=== PATIENT | female | born 1955 | race Caucasian/White ===

== ENCOUNTER → 2016-08-03 | Outpatient (REF) | payer MEDICARE ==
[~2016-08-03] MED LIST: ANTI25TA PO; LANS30CA PO; LORT5TAB PO; MECL-68 PO; MILKSUS PO; POTA20PO4 PO; PREV30CA11 PO; PREVACID PO; PROM25TA PO; TYLE325T5 PO
[2016-08-03 13:11] LABS: INR 1.04
[2016-08-03 13:30] LABS: MEAN CORPUSCULAR HEMOGLOBIN 32.1 pg (27.0-33.0); MEAN CORPUSCULAR HGB CONC 34.4 g/dl (32.0-36.5); MEAN CORPUSCULAR VOLUME 93.5 fl (80.0-96.0); RED CELL DISTRIBUTION WIDTH 12.5 % (11.5-14.5); WHITE BLOOD COUNT 7.1 K/mm3 (4.0-10.0)
[2016-08-03 14:29] LABS: EOSINOPHILS 2 % (0-5)
== END ==
LOC: M LAB REF 12:48
PROVIDERS: ATTEND Nurse Practitioner Adult Health
DX: B18.2 Chronic viral hepatitis C (principal); K74.69 Other cirrhosis of liver

== ENCOUNTER → 2016-12-06 | Outpatient (REF) | payer MEDICARE ==
[2016-12-06 15:24] LABS: INR 1.07
[2016-12-07 07:57] LABS: CONTROL LINE HPYORI INT CTR LINE PRESENT
[2016-12-08 00:06] LABS: HEPATITIS C QUANTITATION HCV Not Detected IU/mL (.)
== END ==
LOC: M LAB REF 12:36
PROVIDERS: ATTEND Nurse Practitioner Adult Health
DX: B18.2 Chronic viral hepatitis C (principal); K74.69 Other cirrhosis of liver

== ENCOUNTER → 2017-03-09 | Outpatient (CLI) | payer MEDICARE ==
[~2017-03-09] MED LIST changes: +ADVI200C PO; +HALO5OI; +PREV1CAP PO; -PREV30CA11 PO
--- NOTE | 2017-03-09 19:43 | ECGEPIP ---
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
== END ==
LOC: M LAB 07:58
PROVIDERS: ATTEND Anesthesiology
DX: R07.9 Chest pain, unspecified (principal)

== ENCOUNTER 2017-03-14 09:46 | Day surgery (SDC) | payer MEDICARE ==
[~2017-03-14] VITALS: Ht 175.3 cm; Wt 93.9 kg
[~2017-03-14 09:46] MED LIST changes: -HALO5OI
[2017-03-14] MEDS ORDERED: LR 1,000 ML IV ONE (10:00)
[2017-03-14] MEDS ORDERED: HALO5OI (10:16)
[2017-03-14] MEDS ORDERED: LIDOCAINE 2% INJ 100 MG/5 ML SDV (FOR ANES.) As Ordered ONE (10:39)
[2017-03-14] MEDS ORDERED: fentaNYL 100 MCG/2 ML INJECTION (J3010) As Ordered ONE ×2 (10:39→11:43)
[2017-03-14] MEDS ORDERED: ROCURONIUM BROMIDE 50 MG/5 ML VIAL/SYRINGE As Ordered ONE (10:39)
[2017-03-14] MEDS ORDERED: ONDANSETRON 4MG/2ML VIAL (J2405) As Ordered ONE (10:39)
[2017-03-14] MEDS ORDERED: PROPOFOL 200 MG/20 ML VIAL As Ordered ONE (10:39)
[2017-03-14] MEDS ORDERED: METOCLOPRAMIDE INJ 10MG/2ML VIAL (J2765) As Ordered ONE (10:39)
[2017-03-14] MEDS ORDERED: dexameTHASONE 4 MG/ML 1ML VIAL (J1100) As Ordered ONE (10:39)
[2017-03-14] MEDS ORDERED: MIDAZOLAM INJ 2 MG/2 ML VIAL (J2250) As Ordered ONE (10:40)
[2017-03-14] MEDS ORDERED: KETOROLAC 60 MG/2 ML VIAL (J1885) As Ordered ONE (12:01)
[2017-03-14] MEDS ORDERED: NEOSTIGMINE 10 MG/10 ML VIAL (J2710) As Ordered ONE (12:01)
[2017-03-14] MEDS ORDERED: GLYCOPYRROLATE INJ 0.2 MG/ML 2 ML VIAL As Ordered ONE (12:01)
[2017-03-14] MEDS ORDERED: fentaNYL 100 MCG/2 ML INJECTION (J3010) IV PRN (12:45)
[2017-03-14] MEDS ORDERED: ONDANSETRON 4MG/2ML VIAL (J2405) IV PRN (12:45)
[2017-03-14] MEDS ORDERED: HYDROmorphone HCL 1 MG/ML SYRINGE (J1170) IV PRN (12:45)
[2017-03-14] MEDS ORDERED: PERCOCET 5MG/325MG TAB PO PRN (12:45)
[2017-03-14] MEDS ORDERED: NORCO, ANEXSIA 5/325MG TABLET (HYDROcodone/ACETAMINOPHEN) PO PRN (12:45)
[2017-03-14] MEDS ORDERED: IBUPROFEN 600 MG TAB PO PRN (12:45)
[2017-03-14] MEDS ORDERED: LR 1,000 ML IV SCH ×2 (12:45)
[2017-03-14 15:20] VITALS: BP 160/77
--- NOTE | 2017-03-15 07:47 | RO ---
DATE OF PROCEDURE: 03/14/2017 PREPROCEDURE DIAGNOSIS: Growing right ovarian cyst. POSTPROCEDURE DIAGNOSIS: Extensive adhesions over each ovary. Cystic lesion. PROCEDURE: Laparoscopic bilateral salpingo-oophorectomy (BSO) with lysis of adhesions. SURGEON: Dr. Qiana Vazquez. SENIOR TREASURY CONSULTANT: None. ANESTHESIA: General endotracheal anesthesia. DESCRIPTION OF PROCEDURE: Adwoa was brought to the operating room where sufficient general endotracheal anesthesia was induced and she was prepped, draped, and positioned in the usual sterile fashion. She is post hysterectomy and so a sponge on a stick was placed in the vagina, but no other manipulator. Attention was turned to the abdomen where a transverse semilunar incision was made below the umbilicus. Sharp and blunt dissection were continued to the subcutaneous tissues to the level of the rectus fascia, which was elevated with Kayla clamps, transversely incised and the peritoneum entered under direct visualization. The Zuniga cannula was then placed in an open laparoscopic technique and secured in place with a 0 Vicryl retention suture and CO2 insufflation then begun. After adequate CO2 insufflation, the peritoneal cavity was visualized. The upper abdomen is normal in appearance. The mid abdomen is normal in appearance. In the lower abdomen, with Trendelenburg, we could see extensive adhesions. The ovaries were fused in the midline in this post hysterectomy patient, and she had extensive adhesions of the epiploicae of the bowel to the posterior aspect of the ovaries and adhesions of the bladder and the anterior abdominal peritoneum to the ovaries and a cystic lesion in the midline. The plan had been for removal of the right ovary and cyst because it was believed to be arising from the right ovary. On the basis of the exam at the time of operation, it is more closely aligned with the left ovary. But as you can see from the operative reports, it is really attached to both. It was clear in this 61-year-old patient that both ovaries were connected to this lesion and were connected to her bladder and her epiploicae of her bowel. The decision was made, based on the patient's preferences expressed preoperatively to go ahead and take both ovaries out, especially given the findings under anesthesia that this lesion is actually arising from both the right and left, and somewhat more so left, actually. We used cold scissors to cut free some of the thinner adhesions and to cut free the bladder and the peritoneum over this. We backfilled the bladder and placed a Taylor so we could backfill the bladder and make sure that we were clearly outlining its location. With it backfilled we were able to see where the adhesions and peritoneum were as opposed to bladder. We also were able to place a right lower quadrant port so that we could have the ability to manipulate the tissues. We then used an Enseal cauterizing dissector to carefully cauterize after resecting the infundibulopelvic ligaments on both sides. Having freed the infundibulopelvic ligaments and maintained good hemostasis, we then carefully began to move through the mesentery removing the remaining stumps of the fallopian tubes as well as the ovaries and the cystic lesion. Where possible, we did use cold scissors to protect the bladder, but we did have to cauterize in some of these locations so we backfilled to make sure we were far enough away before we went ahead and did that. We were also careful to use a grasper to elevate the ovaries and cystic lesion away from the bowel so we could carefully free it. We then eventually had both ovaries fused to this midline cystic lesion and the fallopian tubes distal portions also fimbriated bilaterally all fused in mass. We had that then free from the patient. We switched over to a 5 mm scope rather than the operative scope at the umbilicus and put that 5 mm scope in the right lower quadrant so that we could put an Endobag through the operative scope. Then we scooped up the ovaries and lesion and fallopian tubes with this. We the removed the trocar and everything at the umbilicus so that we could bring that bag up through. Doing this and then carefully manipulating the bag so that the mass came longitudinally and we were able to remove the mass intact in the bag intact and send this off to the pathologist for evaluation. We were able to visualize and examined the site of dissection and confirmed that there was no evidence of injury to the bladder or bowel and there was good hemostasis. The procedure was ended. The CO2 was allowed to escape the abdomen. The fascial wound at the umbilicus was closed with 0 Vicryl suture. There was a little oozing in the subcu at the umbilicus and so we did a mid layer closure of the subcu to control that oozing. When we had good hemostasis there, we then closed the skin with a subcuticular stitch of #3-0 Vicryl. We also closed the skin at the 5 mm port with a subcuticular stitch of #3-0 Vicryl. Estimated blood loss for the procedure was about 22 mL. Fluid replacement was crystalloid. Complications: None. CONDITION AND DISPOSITION: Adwoa tolerated the procedure well and was recovering in the recovery room in good condition.
== END 2017-03-14 15:30 | disposition home or self-care (01) ==
LOC: M SDC 09:46
PROVIDERS: ATTEND Obstetrics & Gynecology
DX: D27.0 Benign neoplasm of right ovary (principal); D27.1 Benign neoplasm of left ovary; K66.0 Peritoneal adhesions (postprocedural) (postinfection); K21.9 Gastro-esophageal reflux disease without esophagitis; M54.5 Low back pain; R07.9 Chest pain, unspecified; K74.60 Unspecified cirrhosis of liver; B19.20 Unspecified viral hepatitis C without hepatic coma; K44.9 Diaphragmatic hernia without obstruction or gangrene; R29.898 Other symptoms and signs involving the musculoskeletal system; M17.0 Bilateral primary osteoarthritis of knee; R21 Rash and other nonspecific skin eruption; R51 Headache; Z88.8 Allergy status to other drugs, medicaments and biological substances; Z91.018 Allergy to other foods; Z87.81 Personal history of (healed) traumatic fracture; Z90.710 Acquired absence of both cervix and uterus; Z78.0 Asymptomatic menopausal state
CPT/HCPCS: 58660; 58661; 88307; J1100; J1885; J2250; J2405; J2710; J2765; J3010

== ENCOUNTER → 2017-03-31 | Outpatient (REF) | payer MEDICARE ==
[~2017-03-31] MED LIST changes: +HALO5OI
== END ==
LOC: M LAB REF 16:15
PROVIDERS: ATTEND Obstetrics & Gynecology
DX: R39.89 Other symptoms and signs involving the genitourinary system (principal)

== ENCOUNTER → 2017-07-11 | Outpatient (REF) | payer MEDICARE ==
[2017-07-12 09:27] LABS: CONTROL LINE HPYORI INT CTR LINE PRESENT; H PYLORI QUALITATIVE IgG NEGATIVE (NEGATIVE)
== END ==
LOC: M LAB REF 17:17
DX: K21.9 Gastro-esophageal reflux disease without esophagitis (principal)
CPT/HCPCS: 86677

== ENCOUNTER 2017-08-22 10:49 | Emergency (ER) | payer MEDICARE ==
[2017-08-22 11:29] LABS: BASO % 0.7 % (0.0-1.0); EOS # 0.2 10^3/uL (0.0-0.50); EOS % 4.2 % (0.0-3.0); HEMATOCRIT 44.2 % (36.0-47.0); HEMOGLOBIN 15.4 g/dl (12.0-16.0); IMMATURE GRANULOCYTE % 0.2 % (0-3.0); LYMPH % 34.3 % (24.0-44.0); MEAN CORPUSCULAR HEMOGLOBIN 31.8 pg (27.0-33.0); MEAN CORPUSCULAR HGB CONC 34.8 g/dl (32.0-36.5); MEAN CORPUSCULAR VOLUME 91.1 fl (80.0-96.0); MONO # 0.4 10^3/uL (0.0-0.8); MONO % 7.7 % (0.0-5.0); NEUTROPHILS # 3.1 10^3/uL (1.8-7.7); NEUTROPHILS % 52.9 % (36.0-66.0); PLATELET COUNT, AUTOMATED 176 10^3/uL (150-450); RED BLOOD COUNT 4.85 10^6/uL (4.00-5.40); RED CELL DISTRIBUTION WIDTH 12.7 % (11.5-14.5); WHITE BLOOD COUNT 5.8 10^3/uL (4.0-10.0)
[2017-08-22] MEDS: ASPIRIN 81 MG CHEW TABLET PO (11:31)
[2017-08-22 12:09] LABS: NT-PRO BNP 35 PG/ML (<125)
[2017-08-22 12:22] LABS: BLOOD UREA NITROGEN 12 MG/DL (7-18); CREATININE FOR GFR 0.83 MG/DL (0.55-1.30); GLUCOSE, FASTING 112 MG/DL (70-100)
[2017-08-22 12:23] LABS: ANION GAP 8 MEQ/L (8-16); CALCIUM LEVEL 8.8 MG/DL (8.8-10.2); CARBON DIOXIDE LEVEL 27 MEQ/L (21-32); CHLORIDE LEVEL 107 MEQ/L (98-107); CK-MB VALUE MASS 4.1 NG/ML (0.0-3.6); CPK CREATINE PHOSPHOKINASE 244 U/L (26-192); GLOMERULAR FILTRATION RATE > 60.0 (>45); MB/CK RELATIVE INDEX 1.68 (< OR =4); POTASSIUM SERUM 3.5 MEQ/L (3.5-5.1); SODIUM LEVEL 142 MEQ/L (136-145); TROPONIN I < 0.02 NG/ML (< 0.10)
[2017-08-22 15:39] LABS: CK-MB VALUE MASS 3.3 NG/ML (0.0-3.6); CPK CREATINE PHOSPHOKINASE 208 U/L (26-192); MB/CK RELATIVE INDEX 1.58 (< OR =4); TROPONIN I < 0.02 NG/ML (< 0.10)
== END 2017-08-22 15:56 | disposition home or self-care (01) ==
LOC: M ED 10:49
DX: R07.9 Chest pain, unspecified (principal); K74.60 Unspecified cirrhosis of liver; Z86.19 Personal history of other infectious and parasitic diseases; Z88.8 Allergy status to other drugs, medicaments and biological substances; Z91.018 Allergy to other foods; Z79.899 Other long term (current) drug therapy
CPT/HCPCS: 71045

== ENCOUNTER → 2017-09-04 | Outpatient (REF) | payer MEDICARE ==
[2017-09-04 18:47] LABS: APPEARANCE, URINE CLEAR (CLEAR); BACTERIA, URINE AUTO NEGATIVE (NEGATIVE); BILIRUBIN, URINE AUTO NEGATIVE (NEGATIVE); BLOOD, URINE BLOOD NEGATIVE (NEGATIVE); COLOR, URINE YELLOW (YELLOW); GLUCOSE, URINE (UA) AUTO NEGATIVE (NEGATIVE); KETONE, URINE AUTO NEGATIVE (NEGATIVE); LEUKOCYTE ESTERASE, URINE AUTO NEGATIVE (NEGATIVE); MUCUS, URINE SMALL (NEGATIVE); NITRITE, URINE AUTO NEGATIVE (NEGATIVE); PROTEIN, URINE AUTO NEGATIVE (NEGATIVE); RBC, URINE AUTO 2 /HPF (0-3); SPECIFIC GRAVITY URINE AUTO 1.015 (1.002-1.035); SQUAMOUS EPITHELIAL CELL UR AU 0 /HPF (0-6); WBC, URINE AUTO 1 /HPF (0-3)
== END ==
LOC: M LAB REF 16:39
DX: R10.2 Pelvic and perineal pain (principal); N32.81 Overactive bladder
CPT/HCPCS: 81001

== ENCOUNTER 2017-10-03 08:05 | Day surgery (SDC) | payer MEDICARE ==
[2017-10-03] MEDS: NS 1,000 ML IV (08:20)
[2017-10-03] MEDS ORDERED: PROPOFOL 200 MG/20 ML VIAL As Ordered ×2 (09:23→09:35)
[2017-10-03] MEDS ORDERED: LIDOCAINE 2% INJ 100 MG/5 ML SDV (FOR ANES.) As Ordered (09:23)
== END 2017-10-03 10:10 | disposition home or self-care (01) ==
LOC: M OPP 08:05
DX: R13.10 Dysphagia, unspecified (principal); R12 Heartburn; K74.60 Unspecified cirrhosis of liver; K22.8 Other specified diseases of esophagus; K44.9 Diaphragmatic hernia without obstruction or gangrene; K21.9 Gastro-esophageal reflux disease without esophagitis; M19.90 Unspecified osteoarthritis, unspecified site; M54.89 Other dorsalgia; R32 Unspecified urinary incontinence; R42 Dizziness and giddiness; K57.30 Diverticulosis of large intestine without perforation or abscess without bleeding; Z86.19 Personal history of other infectious and parasitic diseases; Z79.899 Other long term (current) drug therapy; Z80.0 Family history of malignant neoplasm of digestive organs; Z83.71 Family history of colonic polyps; Z87.891 Personal history of nicotine dependence
CPT/HCPCS: 43249

== ENCOUNTER → 2018-04-20 | Outpatient (CLI) | payer MEDICARE | LOC: M WHC 07:52 | DX: Z12.31 Encounter for screening mammogram for malignant neoplasm of breast (principal) | CPT/HCPCS: 77067 ==

== ENCOUNTER 2018-07-16 08:39 | Emergency (ER) | payer MEDICARE ==
[~2018-07-16] VITALS: Ht 175.3 cm; Wt 97.7 kg
[~2018-07-16 08:39] MED LIST changes: +ADVI1CAP2 PO; -ADVI200C PO; +MILK120011 PO; -MILKSUS PO
--- NOTE | 2018-07-16 09:38 | REP ---
Portable chest x-ray: Single view. History: Chest pain. Comparison study: August 22, 2017. Findings: The lungs are symmetrically aerated and clear. Pleural angles are sharp. Heart size is normal. No significant bony abnormality is seen. Impression: No active disease. Electronically Signed by Victor Hugo Puente MD 07/16/2018 09:30 A
[2018-07-16 09:46] LABS: BASO # 0.1 10^3/uL (0.0-0.2); BASO % 0.9 % (0.0-1.0); EOS # 0.2 10^3/uL (0.0-0.50); EOS % 2.9 % (0.0-3.0); HEMATOCRIT 43.5 % (36.0-47.0); HEMOGLOBIN 15.3 g/dl (12.0-15.5); LYMPH # 1.7 10^3/uL (1.5-4.5); LYMPH % 29.2 % (24.0-44.0); MEAN CORPUSCULAR HEMOGLOBIN 32.2 pg (27.0-33.0); MEAN CORPUSCULAR HGB CONC 35.2 g/dl (32.0-36.5); MEAN CORPUSCULAR VOLUME 91.6 fl (80.0-96.0); MONO # 0.5 10^3/uL (0.0-0.8); MONO % 7.8 % (0.0-5.0); NEUTROPHILS # 3.5 10^3/uL (1.8-7.7); NEUTROPHILS % 58.9 % (36.0-66.0); PLATELET COUNT, AUTOMATED 165 10^3/uL (150-450); RED BLOOD COUNT 4.75 10^6/uL (4.00-5.40); WHITE BLOOD COUNT 5.9 10^3/uL (4.0-10.0)
[2018-07-16 10:09] LABS: INR 1.03; PROTHROMBIN TIME 13.6 SECONDS (12.1-14.4)
[2018-07-16 10:10] LABS: PARTIAL THROMBOPLASTIN TIME 33.2 SECONDS (25.4-37.6)
[2018-07-16 10:15] LABS: ALT/SGPT 53 U/L (12-78); BILIRUBIN,DIRECT 0.2 MG/DL (0.0-0.2); BILIRUBIN,TOTAL 0.5 MG/DL (0.2-1.0); BLOOD UREA NITROGEN 14 MG/DL (7-18); CALCIUM LEVEL 8.7 MG/DL (8.8-10.2); CARBON DIOXIDE LEVEL 24 MEQ/L (21-32); CHLORIDE LEVEL 109 MEQ/L (98-107); CPK CREATINE PHOSPHOKINASE 214 U/L (26-192); CREATININE FOR GFR 0.82 MG/DL (0.55-1.30); FREE T4 1.09 NG/DL (0.76-1.46); GLOMERULAR FILTRATION RATE > 60.0 (>45); GLUCOSE, FASTING 92 MG/DL (70-100); LIPASE 111 U/L (73-393); MB/CK RELATIVE INDEX 1.78 (< OR =4); POTASSIUM SERUM 3.8 MEQ/L (3.5-5.1); SODIUM LEVEL 141 MEQ/L (136-145); TOTAL PROTEIN 7.5 GM/DL (6.4-8.2); TROPONIN I < 0.02 NG/ML (< 0.10)
[2018-07-16] MEDS ORDERED: ESOM1CAP5 PO (10:35)
[2018-07-16] MEDS ORDERED: ISOVUE-370 76% 100ML VIAL (Q9967) As Ordered ONE (10:39)
--- NOTE | 2018-07-16 11:07 | REP ---
Clinical: Acute chest pain and shortness of breath. Technique: Axial contrast enhanced images from the thoracic inlet to the upper abdomen using 100 ml Isovue 370 intravenous contrast material with coronal and sagittal re-formations. Findings: Satisfactory enhancement of the pulmonary vasculature is achieved and no filling defects are identified to suggest pulmonary embolus. Thoracic aorta is normal caliber without aneurysm or dissection. Heart and pericardium are normal. No axillary, hilar, or mediastinal adenopathy. Bilateral lung wolf are well aerated and clear without acute pulmonary parenchymal consolidation or atelectasis. No nodule or mass lesion. No pleural effusion/reaction. No pneumothorax. Impression: No evidence for pulmonary embolus. No acute pleuroparenchymal or mediastinal process. Electronically Signed by Ethan Mcgee MD 07/16/2018 10:59 A
[2018-07-16 15:26] LABS: CPK CREATINE PHOSPHOKINASE 219 U/L (26-192); MB/CK RELATIVE INDEX 1.46 (< OR =4); TROPONIN I < 0.02 NG/ML (< 0.10)
[2018-07-16 16:09] VITALS: BP 154/83
--- NOTE | 2018-07-17 20:52 | ECGEPIP ---
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
--- NOTE | 2018-07-17 21:08 | ECGEPIP ---
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
== END 2018-07-16 16:14 | disposition home or self-care (01) ==
LOC: M ED 08:39
DX: R07.9 Chest pain, unspecified (principal); K21.9 Gastro-esophageal reflux disease without esophagitis; M48.00 Spinal stenosis, site unspecified; K74.60 Unspecified cirrhosis of liver; Z86.19 Personal history of other infectious and parasitic diseases; Z87.891 Personal history of nicotine dependence
CPT/HCPCS: 71045; 71275; 80048; 80076; 82550; 82553; 83690; 84439; 84443; 84484; 85025; 85610; 85730; 93005; 93041; 94760; 99285; Q9967

== ENCOUNTER → 2018-07-25 | Outpatient (REF) | payer MEDICARE ==
[~2018-07-25] MED LIST changes: +ESOM1CAP5 PO
[2018-07-25 14:46] LABS: INFLUENZA A AMPLIFICATION NEGATIVE (NEGATIVE); INFLUENZA B AMPLIFICATION NEGATIVE (NEGATIVE)
== END ==
LOC: M LAB REF 13:09
PROVIDERS: ATTEND Nurse Practitioner Adult Health
DX: R50.9 Fever, unspecified (principal)

== ENCOUNTER → 2018-09-05 | Outpatient (REF) | payer MEDICARE | LOC: M LAB REF 17:29 | PROVIDERS: ATTEND Nurse Practitioner Adult Health | DX: K74.69 Other cirrhosis of liver (principal); K14.0 Glossitis ==

== ENCOUNTER → 2018-12-04 | Outpatient (REF) | payer MEDICARE ==
[~2018-12-04] MED LIST changes: +HALO15OI; -HALO5OI; +PROM-190 PO; -PROM25TA PO
[2018-12-04 13:04] LABS: AMYLASE 67 U/L (25-115); LIPASE 167 U/L (73-393)
[2018-12-04 13:41] LABS: H PYLORI QUALITATIVE IgG NEGATIVE (NEGATIVE)
== END ==
LOC: M LAB REF 12:10
PROVIDERS: ATTEND Nurse Practitioner Adult Health
DX: R11.0 Nausea (principal); K21.9 Gastro-esophageal reflux disease without esophagitis; K74.69 Other cirrhosis of liver

== ENCOUNTER → 2018-12-22 | Outpatient (REF) | payer MEDICARE | LOC: M LAB REF 09:54 | PROVIDERS: ATTEND Physician Assistant | DX: R10.30 Lower abdominal pain, unspecified (principal) ==

== ENCOUNTER → 2019-04-09 | Outpatient (REF) | payer MEDICARE | LOC: M LAB REF 12:19 | PROVIDERS: ATTEND Physician Assistant Medical | DX: N39.0 Urinary tract infection, site not specified (principal) ==

== ENCOUNTER → 2019-06-26 | Outpatient (REF) | payer MEDICARE | LOC: M LAB REF 16:22 | PROVIDERS: ATTEND Nurse Practitioner Adult Health | DX: R10.2 Pelvic and perineal pain (principal) ==

== ENCOUNTER 2019-07-20 16:09 | Day surgery (SDC) | payer MEDICARE ==
[~2019-07-20] VITALS: Ht 175.3 cm; Wt 97.7 kg
[2019-07-20] MEDS ORDERED: LANS30CA93 PO (16:17)
[2019-07-20] MEDS ORDERED: KETOROLAC 30 MG/ML VIAL (J1885) IV ONE (16:45)
[2019-07-20] MEDS ORDERED: METOCLOPRAMIDE INJ 10MG/2ML VIAL (J2765) IV ONE (16:45)
[2019-07-20] MEDS ORDERED: PANTOPRAZOLE 40MG INJ (PROTONIX) (C9113) IV ONE (16:45)
[2019-07-20] MEDS ORDERED: NS 1,000 ML IV ONE (16:45)
[2019-07-20 16:59] LABS: BASO # 0.1 10^3/uL (0.0-0.2); BASO % 0.5 % (0.0-1.0); EOS # 0.1 10^3/uL (0.0-0.5); EOS % 0.9 % (0.0-3.0); HEMATOCRIT 45.5 % (36.0-47.0); HEMOGLOBIN 15.5 g/dl (12.0-15.5); LYMPH # 1.8 10^3/uL (1.5-5.0); LYMPH % 16.3 % (24.0-44.0); MEAN CORPUSCULAR HEMOGLOBIN 31.1 pg (27.0-33.0); MEAN CORPUSCULAR HGB CONC 34.1 g/dl (32.0-36.5); MEAN CORPUSCULAR VOLUME 91.4 fl (80.0-96.0); MONO # 0.7 10^3/uL (0.0-0.8); MONO % 6.2 % (0.0-5.0); NEUTROPHILS # 8.3 10^3/uL (1.5-8.5); NEUTROPHILS % 75.8 % (36.0-66.0); PLATELET COUNT, AUTOMATED 174 10^3/uL (150-450); RED BLOOD COUNT 4.98 10^6/uL (4.00-5.40); WHITE BLOOD COUNT 10.9 10^3/uL (4.0-10.0)
[2019-07-20 17:34] LABS: ALBUMIN 4.4 GM/DL (3.2-5.2); ALT/SGPT 52 U/L (12-78); AMYLASE 63 U/L (25-115); BILIRUBIN,DIRECT 0.2 MG/DL (0.0-0.2); BILIRUBIN,TOTAL 0.6 MG/DL (0.2-1.0); BLOOD UREA NITROGEN 10 MG/DL (7-18); CALCIUM LEVEL 8.5 MG/DL (8.8-10.2); CARBON DIOXIDE LEVEL 28 MEQ/L (21-32); CHLORIDE LEVEL 107 MEQ/L (98-107); GLOMERULAR FILTRATION RATE > 60.0 (>45); GLUCOSE, FASTING 91 MG/DL (70-100); LIPASE 99 U/L (73-393); POTASSIUM SERUM 3.8 MEQ/L (3.5-5.1); SODIUM LEVEL 142 MEQ/L (136-145); TOTAL PROTEIN 7.8 GM/DL (6.4-8.2)
[2019-07-20] MEDS ORDERED: ISOVUE-370 76% 100ML VIAL (Q9967) As Ordered ONE (17:37)
--- NOTE | 2019-07-20 19:04 | REPVR ---
PROCEDURE INFORMATION: Exam: CT Abdomen And Pelvis With Contrast Exam date and time: 07/20/2019 5:41 PM Age: 63 years old Clinical indication: Abdominal pain; Localized; Lower; Additional info: Pelvic pain TECHNIQUE: Imaging protocol: Computed tomography of the abdomen and pelvis with intravenous contrast. Radiation optimization: All CT scans at this facility use at least one of these dose optimization techniques: automated exposure control; mA and/or kV adjustment per patient size (includes targeted exams where dose is matched to clinical indication); or iterative reconstruction. Contrast material: ISOVUE 370; Contrast volume: 100 ml; Contrast route: IV; COMPARISON: CT ABD PELVIS WITH CONTRAST 01/26/2014 3:45 PM FINDINGS: Lungs: Right lower lobe pulmonary nodule measures 1.2 cm and is stable from prior. No follow-up indicated. Liver: Cirrhotic liver morphology. 1.9 cm right hepatic cyst is stable. Additional tiny right hepatic hypodensity is too small to characterize. Gallbladder and bile ducts: Previous cholecystectomy with mild intrahepatic and extrahepatic biliary dilatation. Appearance is similar from prior examination. Pancreas: Normal. No ductal dilation. Spleen: Normal. No splenomegaly. Adrenals: Normal. No mass. Kidneys and ureters: Normal. No hydronephrosis. Stomach and bowel: Diverticulosis without diverticulitis. Appendix: Thickening of the appendix measuring up to 10 mm. Adjacent inflammatory change. No drainable fluid collection. Intraperitoneal space: See Appendix Finding. Vasculature: Unremarkable. No abdominal aortic aneurysm. Lymph nodes: Mildly prominent periportal lymph nodes are similar from previous examination. Bladder: Unremarkable as visualized. Reproductive: Previous hysterectomy. Bones/joints: There are chronic pelvic fractures. There are degenerative changes involving the spine. Soft tissues: Small fat containing umbilical hernia. IMPRESSION: Findings compatible with acute appendicitis without rupture or abscess. Electronically signed by: Samuel Marsh On 07/20/2019 19:05:53 PM
[2019-07-20] MEDS ORDERED: AMPICILLIN SOD/SULBACTAM SOD 3 GM in D5W MINI-BAG PLUS 100 ML IV ONE (19:15)
[2019-07-20] MEDS ORDERED: LR 1,000 ML IV SCH ×2 (20:00→22:15)
[2019-07-20] MEDS ORDERED: LIDOCAINE 1% SDV INJ 30 ML VIAL As Ordered ONE (20:05)
[2019-07-20] MEDS ORDERED: BUPIVACAINE HCL 0.25% 30 ML VIAL As Ordered ONE (20:05)
[2019-07-20] MEDS ORDERED: MIDAZOLAM INJ 2 MG/2 ML VIAL (J2250) As Ordered ONE (20:19)
[2019-07-20] MEDS ORDERED: fentaNYL 100 MCG/2 ML INJECTION (J3010) As Ordered ONE (20:19)
[2019-07-20] MEDS ORDERED: propofoL 200 MG/20 ML VIAL As Ordered ONE (20:19)
[2019-07-20] MEDS ORDERED: ROCURONIUM BROMIDE 50 MG/5 ML VIAL As Ordered ONE ×2 (20:19→21:14)
[2019-07-20] MEDS ORDERED: dexameTHASONE 4 MG/ML 1ML VIAL (J1100) As Ordered ONE (20:20)
[2019-07-20] MEDS ORDERED: ONDANSETRON 4MG/2ML VIAL (J2405) As Ordered ONE (20:20)
[2019-07-20] MEDS ORDERED: LIDOCAINE 2% INJ 100 MG/5 ML SDV (FOR ANES.) As Ordered ONE (20:20)
--- NOTE | 2019-07-20 20:23 | HPEPDOC ---
General Surgery H&P Date of Admission Jul 20, 2019 Attending Physician: KAREN ANGUIANO MD History and Physical CHIEF COMPLAINT: abdominal pain HISTORY OF PRESENT ILLNESS: Patient is a 63-year-old female who presents are soft to the emergency room with a one-day history of abdominal pain that feels generalized. This began abruptly at about 10:30 today with associated nausea though she did not vomit. She denies any associated fevers or chills. She denies any sick contacts. She denies any prior episodes of similar symptoms. Her medical history significant for chronic hepatitis C with early cirrhosis. ALLERGIES: Please see below. HOME MEDICATIONS: Please see below. PAST MEDICAL HISTORY: 1. Chronic hepatitis C with early cirrhosis. 2. Gastroesophageal reflux disease. PAST SURGICAL HISTORY: 1. Laparoscopic cholecystectomy in 2009. 2. Partial hysterectomy 1989 3. Bladder tuck 4. Ovarian cystectomy 5. Left knee surgery. 6. Endoscopy and colonoscopy PERSONAL/SOCIAL HISTORY: Denies smoking, alcohol use, or recreational drug use. REVIEW OF SYSTEMS: GENERAL: Denies chills, fatigue, fever, weight gain and weight loss. HEENT: Patient reports heart appearing, does not use a hearing aid. NECK: Denies any neck pain. CARDIOVASCULAR: She reports intermittent chest pain felt to be related to prior sternal fracture from a fall. MUSCULOSKELETAL: Reports back pain, previous left spine fracture that did not need any surgery, prior left knee surgery. History of arthritis. SKIN: Denies rash. NEUROLOGIC: Occasional headache, none recently. PSYCHIATRIC: Denies anxiety and depression. ENDOCRINE: Denies thyroid disease. HEMATOLOGY/ONCOLOGY: Denies any bleeding or clotting disorder. HEART: Denies any chest pains, palpitations, paroxysmal dyspnea, orthopnea. PULMONARY: Denies chronic cough, dyspnea and wheezing. GASTROINTESTINAL: See HPI. Reports history of gastric esophageal reflux disease. She has chronic hepatitis C GENITOURINARY: Reports mild urinary incontinence. She has had prior bladder surgery. ENDOCRINE: Denies polydipsia, polyphagia, polyuria, heat or cold intolerance. INFECTIOUS: Denies any recent upper respiratory tract infection, UTI, need for use of antibiotics. NUTRITION: Reports fair appetite. PHYSICAL EXAMINATION: VITAL SIGNS: Please see below. GENERAL APPEARANCE: Patient looks comfortable. Awake, alert, oriented. HEENT: Normocephalic, atraumatic. [place] palpebral conjunctivae. Anicteric sclerae. Lips moist. CHEST: No chest wall abnormalities. Normal respiratory motion/effort. NECK: Supple. No thyromegaly. No lymphadenopathies. LUNGS: Lung sounds are clear to auscultation bilaterally. No wheezing appreciated. HEART: No chest wall abnormalities. Heart rate and rhythm are regular with no murmurs. ABDOMEN: obese, round abdomen. Nondistended. Laparoscopic port sites from previous surgery. No umbilical or groin herniation. Minimal tenderness around umbilicus, mild tenderness over right lower quadrant area. no guarding. SKIN: Warm, moist. EXTREMITIES: Extremities have no deformities. No edema identified. NEUROLOGICAL: awake, alert, oriented. ANCILLARIES: . LABORATORY DATA: Please see below. MICROBIOLOGY: Please see below. IMAGING: CT abdomen and pelvis Liver: Cirrhotic liver morphology. 1.9 cm right hepatic cyst is stable. Additional tiny right hepatic hypodensity is too small to characterize. Gallbladder and bile ducts: Previous cholecystectomy with mild intrahepatic and extrahepatic biliary dilatation. Appearance is similar from prior examination. Pancreas: Normal. No ductal dilation. Spleen: Normal. No splenomegaly. Adrenals: Normal. No mass. Kidneys and ureters: Normal. No hydronephrosis. Stomach and bowel: Diverticulosis without diverticulitis. Appendix: Thickening of the appendix measuring up to 10 mm. Adjacent inflammatory change. No drainable fluid collection. Intraperitoneal space: See Appendix Finding. Vasculature: Unremarkable. No abdominal aortic aneurysm. Lymph nodes: Mildly prominent periportal lymph nodes are similar from previous examination. Bladder: Unremarkable as visualized. Reproductive: Previous hysterectomy. Bones/joints: There are chronic pelvic fractures. There are degenerative changes involving the spine. Soft tissues: Small fat containing umbilical hernia. IMPRESSION: Findings compatible with acute appendicitis without rupture or abscess. IMPRESSION AND PLAN: Acute appendicitis with localized peritonitis Patient's history consistent with acute appendicitis. She is tenderness over the right lower quadrant area with mild guarding and examination. She is afebrile and not exhibiting severe systemic inflammatory response from this. Her white cell count is only 10.9. I reviewed the imaging myself this shows a thickened appendix with periappendiceal inflammation. Other relevant findings include enlarged liver with a cirrhotic liver morphology consistent with prior findings and prior biopsy. She was advised for need to bring her to the OR for laparoscopic appendectomy. I discussed with the patient the details of the proposed procedure, the benefits of performing the procedure, the most common risks on doing the procedure. This may include risks for bleeding, infection, abscess formation, injury to bowels or blood vessels. I have given him a chance to ask questions, voice out concerns. Patient has agreed to proceed She's been given a dose of Unasyn 3 g IV in the emergency room while awaiting availability of the OR. Further recommendations depending on intraoperative findings as well as perioperative course. Vital Signs Vital Signs Date Time Temp Pulse Resp B/P (MAP) Pulse Ox O2 Delivery O2 Flow Rate FiO2 07/20/19 19:43 98.1 104 16 131/62 (85) 98 07/20/19 16:09 Room Air Laboratory Data Labs 24H Laboratory Tests 2 07/20/19 16:48: Immature Granulocyte % (Auto) 0.3, Neutrophils (%) (Auto) 75.8H, Lymphocytes (%) (Auto) 16.3L, Monocytes (%) (Auto) 6.2H, Eosinophils (%) (Auto) 0.9, Basophils (%) (Auto) 0.5, Neutrophils # (Auto) 8.3, Lymphocytes # (Auto) 1.8, Monocytes # (Auto) 0.7, Eosinophils # (Auto) 0.1, Basophils # (Auto) 0.1, Nucleated Red Blood Cells % (auto) 0.0, Urine Color YELLOW, Urine Appearance CLEAR, Urine pH 5.0, Urine Specific Logan 1.005, Urine Protein NEGATIVE, Urine Glucose (UA) NEGATIVE, Urine Ketones NEGATIVE, Urine Blood 1+H, Urine Nitrite NEGATIVE, Urine Bilirubin NEGATIVE, Urine Urobilinogen 0.2, Urine Leukocyte Esterase NEGATIVE, Urine WBC (Auto) 1, Urine RBC (Auto) 2, Urine Hyaline Casts (Auto) 0, Urine Bacteria (Auto) NEGATIVE, Urine Squamous Epithelial Cells 0, Urine Mucus (Auto) SMALL, Urine Sperm (Auto) , Anion Gap 7L, Glomerular Filtration Rate > 60.0, Calcium Level 8.5L, Total Bilirubin 0.6, Direct Bilirubin 0.2, Aspartate Amino Transf (AST/SGOT) 35, Alanine Aminotransferase (ALT/SGPT) 52, Alkaline Phosphatase 89, Total Protein 7.8, Albumin 4.4, Albumin/Globulin Ratio 1.29, Amylase Level 63, Lipase 99 CBC/BMP Laboratory Tests 07/20/19 16:48 Home Medications Scheduled Lansoprazole (Lansoprazole) 30 Mg Capsule.dr, 30 MG PO BID, (Reported) Allergies Coded Allergies: No Known Allergies (Unverified , 09/26/17) A-FIB/CHADSVASC A-FIB History Current/History of A-Fib/PAF?: No Current PO Anticoag Therapy: KAREN Matthews MD Jul 20, 2019 20:23
[2019-07-20] MEDS ORDERED: KETOROLAC 60 MG/2 ML VIAL (J1885) As Ordered ONE (21:17)
[2019-07-20] MEDS ORDERED: SUGAMMADEX SODIUM 500 MG/5 ML VIAL (BRIDION) As Ordered ONE (21:17)
[2019-07-20] MEDS ORDERED: ACETAMINOPHEN 1000MG 100ML IV BTL (OFIRMEV) (J0131 PER 10MG) As Ordered ONE (21:17)
[2019-07-20] MEDS ORDERED: PHENYLephrine HCL 500 MCG/5 ML (100MCG/ML) SYRINGE (J2370) As Ordered ONE (21:24)
--- NOTE | 2019-07-20 22:04 | ECGEPIP ---
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
[2019-07-20] MEDS ORDERED: oxyCODONE 5MG TAB PO PRN (22:15)
[2019-07-20] MEDS ORDERED: PERCOCET 5MG/325MG TAB PO PRN (22:15)
[2019-07-20] MEDS ORDERED: ONDANSETRON 4MG/2ML VIAL (J2405) IV PRN (22:15)
[2019-07-20] MEDS ORDERED: fentaNYL 100 MCG/2 ML INJECTION (J3010) IV PRN (22:15)
[2019-07-20 23:15] VITALS: BP 108/68
[2019-07-20 23:45] VITALS: BP 115/71
[2019-07-21 00:45] VITALS: BP 124/75
[2019-07-21] MEDS ORDERED: KETOROLAC 30 MG/ML VIAL (J1885) IV PRN (01:00)
[2019-07-21] MEDS: AMPICILLIN SOD/SULBACTAM SOD 3 GM in D5W MINI-BAG PLUS 100 ML IV SCH ×3 (01:11→14:21)
[2019-07-21] MEDS: PERCOCET 5MG/325MG TAB PO PRN ×2 (01:11→06:48)
[2019-07-21 01:45] VITALS: BP 127/75
[2019-07-21 02:45] VITALS: BP 109/63
[2019-07-21 03:45] VITALS: BP 114/65
[2019-07-21 06:48] LABS: BASO % 0.1 % (0.0-1.0); HEMATOCRIT 40.2 % (36.0-47.0); HEMOGLOBIN 13.7 g/dl (12.0-15.5); LYMPH # 0.9 10^3/uL (1.5-5.0); LYMPH % 8.5 % (24.0-44.0); MEAN CORPUSCULAR HEMOGLOBIN 31.4 pg (27.0-33.0); MEAN CORPUSCULAR HGB CONC 34.1 g/dl (32.0-36.5); MEAN CORPUSCULAR VOLUME 92.2 fl (80.0-96.0); MONO # 0.5 10^3/uL (0.0-0.8); MONO % 4.4 % (0.0-5.0); NEUTROPHILS % 86.4 % (36.0-66.0); PLATELET COUNT, AUTOMATED 128 10^3/uL (150-450); RED BLOOD COUNT 4.36 10^6/uL (4.00-5.40); WHITE BLOOD COUNT 10.4 10^3/uL (4.0-10.0)
--- NOTE | 2019-07-21 07:28 | REP ---
Portable chest, a 03:00 p.m., single AP view with the patient upright: Comparison is 07/16/2018. The lung wolf are clear. The cardiac size is normal. The brian, mediastinum, and skeletal structures are unremarkable. Impression: Negative portable chest. There is no interval change. Electronically Signed by Jovani Clancy MD 07/21/2019 07:20 A
[2019-07-21] MEDS: ONDANSETRON 4MG/2ML VIAL (J2405) IV PRN ×2 (07:38→14:21)
[2019-07-21] MEDS: PANTOPRAZOLE 40MG TAB (PROTONIX) PO SCH (08:05)
[2019-07-21 13:15] VITALS: BP 133/75
[2019-07-21] MEDS ORDERED: NORCO, ANEXSIA 5/325MG TABLET (HYDROcodone/ACETAMINOPHEN) PO PRN (14:30)
[2019-07-21] MEDS ORDERED: IBUPROFEN 600 MG TAB PO PRN (14:30)
[2019-07-21] MEDS ORDERED: ACETAMINOPHEN TAB 650MG DOSE (2X325MG) PO PRN (14:30)
--- NOTE | 2019-07-21 17:06 | IPN ---
DATE: 07/21/2019 HISTORY: Patient of Dr. Lynch who was admitted on 07/20/2019 with acute appendicitis and underwent a laparoscopic appendectomy last evening. She had been doing very well overnight and was tolerating some liquids. Currently she complains of feeling weak and dizzy and had an episode of emesis within the last hour or so. She did have one Percocet tablet earlier this morning. She has been receiving Unasyn for antibiotic coverage. Vital signs show that she has had a maximum temperature (T-max) of 99.3 and 98 degrees most recently. Her pulse is in the low 80s and her blood pressure is good. Room air oxygen saturations are normal. Intake and output show that she had taken 1350 in orally and has voided six times, though these were not measured. She had an episode of emesis recorded at approximately 1311. She reports that she still feels nauseous now. PHYSICAL EXAMINATION: Patient is alert and clearly oriented. She denies any significant pain currently. Heart exam shows a regular rate and rhythm and she is not tachycardiac. The lungs are clear. The abdomen is somewhat obese. She has bowel sounds present. She has three incisions that are dressed or covered with Dermabond. The abdomen is soft and without any undue tenderness. Laboratory studies this morning, she had a complete blood count (CBC) showing a white count of 10, hemoglobin 14, hematocrit 40 and platelet count of 128,000. IMPRESSION: Patient is currently having some feelings of weakness and dizziness. She had one episode of emesis and does report some nausea currently. PLAN: I will stop her Percocet and also stop her antibiotics, as she does not appear to require these any longer. I will put her back on just some clear liquids and I advised her that she can take these if she feels well without any significant nausea. She does have Zofran ordered for nausea and vomiting as needed. We will keep her in the hospital and see how she does for awhile, but when her nausea resolves and she is able to tolerate a diet adequately, we will discharge her home. GEORGE
[2019-07-21 22:00] VITALS: BP 131/70
[2019-07-22 06:00] VITALS: BP 121/69
[2019-07-22] MEDS: PANTOPRAZOLE 40MG TAB (PROTONIX) PO SCH ×2 (08:43→09:00)
--- NOTE | 2019-07-22 08:59 | IPNPDOC ---
Text Note Date of Service The patient was seen on 07/22/19. NOTE Patient reports feeling much better. She had one episode of nausea and vomiting yesterday which she saw probably is from the Percocets. The Percocets and the antibiotics were stopped and she has not had any other episodes. She is tolerating regular food. She's been using Tylenol and Motrin intermittently for the residual pain. Complaining of mild headache from her tooth Vital signs stable, afebrile Patient looks comfortable, ambulating independently Regular heart rate and rhythm Lungs sounds are clear to auscultation bilaterally Round abdomen, soft.. Dressings are clean, dry and intact. Nontender on palpation No significant extremity edema Postop day 2 laparoscopic appendectomy for acute appendicitis Patient is cleared to go home. She may have had some adverse reaction from the Percocet that caused the nausea and vomiting. This probably resolved after stopping the medication. She'll go home on just Motrin and Tylenol intermittently. She does not need antibiotics. Follow-up with me in 2 weeks. VS,Fishbone, I+O VS, Fishbone, I+O Vital Signs Date Time Temp Pulse Resp B/P (MAP) Pulse Ox O2 Delivery O2 Flow Rate FiO2 07/22/19 06:00 98.9 71 18 121/69 (86) 94 Room Air 07/20/19 23:45 2.0 I&O- Last 24 Hours up to 6 AM 07/22/19 05:59 Intake Total 1920 ml Output Total 0 ml Balance 1920 ml KAREN ANGUIANO MD Jul 22, 2019 08:59
--- NOTE | 2019-07-22 10:29 | ROOPDOC ---
[facility] Report Of Operation Report of Operation DATE OF PROCEDURE: 07/20/19 PREPROCEDURE DIAGNOSES: Acute appendicitis. POSTPROCEDURE DIAGNOSES: Acute appendicitis, retrocecal appendix. PROCEDURE: Laparoscopic appendectomy. SURGEON: Feliz Stephenson MD ANESTHESIA: General anesthesia. ESTIMATED BLOOD LOSS: Approximately 20 mL. COMPLICATIONS: none. SPECIMEN: Appendix. PROCEDURE NOTE: Nodular mildly enlarged liver consistent with early cirrhosis which he has been previously diagnosed with chronic hepatitis C. No ascites or free fluid. Enlarged appendix located retrocecally with thickened mesal appendix. No evidence of free perforation, abscess formation. DESCRIPTION OF PROCEDURE: Patient has been given a dose of Unasyn 3 gm IV perioperatively.Patient was brought to the operating room, placed supine on the table. Sequential compression device placed for DVT prophylaxis. General endotracheal anesthesia started. The abdomen prepped and draped in usual sterile fashion. After a surgical timeout, we began our surgery Entry into the abdomen done through an incision above the umbilicus. Veress needle inserted on a controlled fashion. Intra-abdominal placement confirmed with saline drop technique. CO2 insufflation started to a pressure of 15 mmHg. Using the same incision a 5 mm port was placed under direct vision of laparoscope. Insertion site was inspected for injury and none was found. She was placed on a Trendelenburg position the right side tilted to about 30 to allow f or better visualization of the appendix. Two 5 mm ports were placed at the suprapubic area and left lower quadrant area under direct vision. The 5 mm umbilical port was exchanged for an 8 mm port. Operative findings: She has a mildly enlarged nodular liver consistent with cirrhosis. There is no associated ascites. She has some mildly dilated loops of small bowel which were on my way visually probably some element of ileus. The appendix wasn't visible to start with and it actually took a retrocecal course. After freeing up the lateral attachments of the cecum with taking this medially the appendix was found. The base of the appendix is healthy. The mesal appendix is thickened and shortened. No obvious perforations, abscess or fluid collections noted. The lateral attachments of the cecum and terminal ileum was divided with Harmonic scalpel to rotate the cecum medially. The appendix was located and traced to its attachments to the cecum. This was delivered into view. The mesal appendix and shortened and thickened. The mesoappendix was divided using Harmonic scalpel down to the base. Two PDS Endoloops were placed to ligate the appendix at its base then divided with a Harmonic Scalpel the stump cauterized. Stump appears healthy. Appendix was then delivered into an Endo Catch bag. After re-insufflation the surgical site was inspected for hemostasis, there was a couple of areas along the stump of the mesal appendix as well as the lateral sidewall that has some mild oozing which needed cautery. Leftover hemato ma and irrigation was suctioned off. The abdomen was deflated. All ports removed. The umbilical fascial defect repaired with 0 Vicryl using a Visys device.. All skin incisions closed with 4-0 Monocryl in a subcuticular fashion. Steri-Strips and gauze dressing used for wound coverage. Patient was promptly awake and extubated and brought to recovery room stable. All counts of sponges and instruments verified to be correct. FELIZ STEPHENSON MD Jul 22, 2019 10:29
== END 2019-07-22 08:55 | disposition home or self-care (01) ==
LOC: M ED 16:09 → M SDC 16:10 → ENRESERVDT 22:45 → ENRESERVTM 22:45 → M MS5PR 23:10 → M SDC 07-22 08:55
PROVIDERS: ATTEND Surgery
DX: K35.890 Other acute appendicitis without perforation or gangrene (principal); K21.9 Gastro-esophageal reflux disease without esophagitis; K74.60 Unspecified cirrhosis of liver; B18.2 Chronic viral hepatitis C; E66.9 Obesity, unspecified; Z79.899 Other long term (current) drug therapy
CPT/HCPCS: 36415; 44970; 71045; 74177; 80048; 80076; 81001; 82150; 83690; 85025; 88304; 93005; 96361; 96365; 96366; 96375; 96376; 99285; C9113; J0131; J1100; J1885; J2250; J2370; J2405; J2765; J3010; Q9967

== ENCOUNTER → 2019-09-19 | Outpatient (REF) | payer MEDICARE ==
[~2019-09-19] MED LIST changes: +LANS30CA93 PO
== END ==
LOC: M LAB REF 12:32
PROVIDERS: ATTEND Physician Assistant
DX: N39.0 Urinary tract infection, site not specified (principal)

== ENCOUNTER → 2019-10-26 | Outpatient (REF) | payer MEDICARE | LOC: M LAB REF 19:48 | PROVIDERS: ATTEND Physician Assistant | DX: N39.0 Urinary tract infection, site not specified (principal) ==

== ENCOUNTER → 2019-11-08 | Outpatient (CLI) | payer MEDICARE ==
--- NOTE | 2019-11-08 08:50 | REPMRS ---
Patient History The patient states she has not had a clinical breast exam in over a year. Patient is postmenopausal. Family history of colorectal cancer at age 50 or over in father. No Hormone Replacement Therapy Digital Woman Screen Mammo: November 08, 2019 - Exam #: [id number] Bilateral CC and MLO view(s) were taken. Technologist: Brenda Garcia, Technologist Prior study comparison: April 20, 2018, bilateral digital woman screen mammo performed at [facility]. April 19, 2017, digital woman screen mammo performed at [facility]. April 08, 2016, digital woman screen mammo performed at [facility]. FINDINGS: The breast tissue is almost entirely fat. The Volpara volumetric breast density category is: A. There has been no change in the appearance of the mammogram from the prior studies. There is no interval development of dominant mass, architectural distortion, or grouped microcalcification typical of malignancy. 3-D tomosynthesis shows no additional findings. Assessment: BI-RADS/ACR category 1 mammogram. Negative Mammogram. Recommendation Routine screening mammogram of both breasts in 1 year (for women over age 40). This patient's Lifetime Breast Cancer RIsk is estimated at 6.6 %. This mammogram was interpreted with the aid of an FDA-approved computer-aided dectection system. Electronically Signed By: Nathan Puente MD 11/08/19 0850
== END ==
LOC: M WHC 08:01
PROVIDERS: ATTEND Nurse Practitioner Adult Health
DX: Z12.31 Encounter for screening mammogram for malignant neoplasm of breast (principal); Z80.0 Family history of malignant neoplasm of digestive organs

== ENCOUNTER → 2019-12-02 | Outpatient (CLI) | payer MEDICARE ==
--- NOTE | 2019-12-02 11:52 | REP ---
ACUTE ABDOMINAL SERIES: Three views. HISTORY: Left lower quadrant pain. COMPARISON STUDY: March 04, 2012. FINDINGS: Upright chest radiograph is normal. There are mild degenerative changes in the thoracic spine. Heart is not enlarged. No infiltrate or free subdiaphragmatic air is seen. Supine and erect views of the abdomen show clips in the right upper quadrant. There is a dextroconvex lumbar curvature unchanged with degenerative spondylosis. There are two or three loops of mildly prominent air filled small bowel in the central abdomen question ileus. Air and stool are seen in the proximal and distal colon. No evidence of free air. IMPRESSION: Question mild ileus pattern in the bowel gas. No evidence of free air, mass, or obstruction. Electronically Signed by Victor Hugo Puente MD 12/02/2019 02:57 P
[2019-12-02 12:58] LABS: BASO # 0.1 10^3/uL (0.0-0.2); EOS # 0.3 10^3/uL (0.0-0.5); EOS % 5.1 % (0.0-3.0); HEMATOCRIT 47.3 % (36.0-47.0); HEMOGLOBIN 16.3 g/dl (12.0-15.5); LYMPH # 2.3 10^3/uL (1.5-5.0); MEAN CORPUSCULAR HEMOGLOBIN 32.5 pg (27.0-33.0); MEAN CORPUSCULAR HGB CONC 34.5 g/dl (32.0-36.5); MEAN CORPUSCULAR VOLUME 94.4 fl (80.0-96.0); MONO # 0.5 10^3/uL (0.0-0.8); MONO % 7.6 % (0.0-5.0); NEUTROPHILS # 3.1 10^3/uL (1.5-8.5); NEUTROPHILS % 49.1 % (36.0-66.0); PLATELET COUNT, AUTOMATED 182 10^3/uL (150-450); RED BLOOD COUNT 5.01 10^6/uL (4.00-5.40); WHITE BLOOD COUNT 6.3 10^3/uL (4.0-10.0)
[2019-12-02 13:13] LABS: ALBUMIN 4.3 GM/DL (3.2-5.2); ALT/SGPT 63 U/L (12-78); BILIRUBIN,TOTAL 0.6 MG/DL (0.2-1.0); BLOOD UREA NITROGEN 12 MG/DL (7-18); CALCIUM LEVEL 9.1 MG/DL (8.8-10.2); CARBON DIOXIDE LEVEL 29 MEQ/L (21-32); CHLORIDE LEVEL 106 MEQ/L (98-107); CREATININE FOR GFR 0.86 MG/DL (0.55-1.30); GLOMERULAR FILTRATION RATE > 60.0 (>45); GLUCOSE, FASTING 78 MG/DL (70-100); POTASSIUM SERUM 4.2 MEQ/L (3.5-5.1); SODIUM LEVEL 142 MEQ/L (136-145); TOTAL PROTEIN 7.7 GM/DL (6.4-8.2)
== END ==
LOC: M ADAMS 10:11
PROVIDERS: ATTEND Physician Assistant
DX: R10.814 Left lower quadrant abdominal tenderness (principal)

== ENCOUNTER → 2019-12-27 | Outpatient (CLI) | payer MEDICARE ==
[~2019-12-27] MED LIST changes: +CITRTAB16 PO; +CVS1CHW13 PO; +CVS500CA5 PO; +MULTTAB86 PO; +OSTE5TAB PO; +VITATAB47 PO
== END ==
LOC: M LABSMTC 10:39
PROVIDERS: ATTEND Anesthesiology
DX: Z01.818 Encounter for other preprocedural examination (principal); Z11.59 Encounter for screening for other viral diseases
CPT/HCPCS: C9803; U0003

== ENCOUNTER 2019-12-30 07:58 | Day surgery (SDC) | payer MEDICARE ==
[~2019-12-30] VITALS: Ht 162.6 cm; Wt 83.9 kg
[2019-12-30] MEDS ORDERED: NS 1,000 ML IV ONE (08:15)
[2019-12-30] MEDS ORDERED: propofoL 200 MG/20 ML VIAL As Ordered ONE ×2 (08:50→09:04)
[2019-12-30] MEDS ORDERED: LIDOCAINE 2% 100MG/5ML SDV (FOR ANES.) As Ordered ONE (08:51)
--- NOTE | 2019-12-30 08:58 | ROOR ---
Patient Name: Adwoa Correa Procedure Date: 12/30/2019 8:37 AM Date of : 1955 Age: 64 Room: [facility] Gender: Female Note Status: Finalized Procedure: Upper GI endoscopy Indications: Suspected portal hypertensive gastropathy, Follow-up of portal hypertensive gastropathy Providers: Gamaliel Mccauley MD Referring MD: Meron Amezquita NP Requesting Provider: Medicines: Monitored Anesthesia Care Complications: No immediate complications. Procedure: Pre-Anesthesia Assessment: - The heart rate, respiratory rate, oxygen saturations, blood pressure, adequacy of pulmonary ventilation, and response to care were monitored throughout the procedure. The Endoscope was introduced through the mouth, and advanced to the second part of duodenum. The upper GI endoscopy was accomplished without difficulty. The patient tolerated the procedure well. Findings: Grade I varices were found in the lower third of the esophagus. They were small in size. No other significant abnormalities were identified in a careful examination of the stomach. The exam of the duodenum was otherwise normal. Impression: - Grade I esophageal varices. - No specimens collected. - The examination was otherwise normal. Recommendation: - Patient has a contact number available for emergencies. The signs and symptoms of potential delayed complications were discussed with the patient. Return to normal activities tomorrow. Written discharge instructions were provided to the patient. - High fiber diet. - Discharge patient to home. - Continue present medications. - Return to referring physician. - Repeat upper endoscopy in 1 year for surveillance. - The findings and recommendations were discussed with the patient. Gamaliel Mccauley MD Gamaliel Mccauley MD 12/30/2019 8:57:34 AM Electronically signed by Gamaliel Mccauley MD Number of Addenda: 0 Note Initiated On: 12/30/2019 8:37 AM Estimated Blood Loss: Estimated blood loss: none.
--- NOTE | 2019-12-30 09:21 | ROOR ---
Patient Name: Adwoa Correa Procedure Date: 12/30/2019 8:38 AM Date of : 1955 Age: 64 Room: [facility] Gender: Female Note Status: Finalized Procedure: Total Colonoscopy to Cecum Indications: Screening in patient at increased risk: Family history of 1st-degree relative with colorectal cancer Providers: Gamaliel Mccauley MD Referring MD: Meron Amezquita NP Requesting Provider: Medicines: Monitored Anesthesia Care Complications: No immediate complications. Procedure: Pre-Anesthesia Assessment: - The heart rate, respiratory rate, oxygen saturations, blood pressure, adequacy of pulmonary ventilation, and response to care were monitored throughout the procedure. The Colonoscope was introduced through the anus and advanced to the cecum, identified by appendiceal orifice and ileocecal valve. The colonoscopy was performed without difficulty. The patient tolerated the procedure well. The quality of the bowel preparation was excellent. Findings: The perianal and digital rectal examinations were normal. Non-bleeding internal hemorrhoids were found during retroflexion. The hemorrhoids were small and Grade I (internal hemorrhoids that do not prolapse). Multiple small and large-mouthed diverticula were found in the recto-sigmoid colon, sigmoid colon and descending colon. The exam was otherwise without abnormality on direct and retroflexion views. Impression: - Non-bleeding internal hemorrhoids. - Diverticulosis in the recto-sigmoid colon, in the sigmoid colon and in the descending colon. - The examination was otherwise normal on direct and retroflexion views. - No specimens collected. - The exam was otherwise normal to the cecum. Recommendation: - Patient has a contact number available for emergencies. The signs and symptoms of potential delayed complications were discussed with the patient. Return to normal activities tomorrow. Written discharge instructions were provided to the patient. - High fiber diet. - Discharge patient to home. - Continue present medications. - Repeat colonoscopy in 5 years for screening purposes. - Return to referring physician. - The findings and recommendations were discussed with the patient. Gamaliel Mccauley MD Gamaliel Mccauley MD 12/30/2019 9:21:26 AM Electronically signed by Gamaliel Mccauley MD Number of Addenda: 0 Note Initiated On: 12/30/2019 8:38 AM Estimated Blood Loss: Estimated blood loss: none.
[2019-12-30 09:51] VITALS: BP 109/62
== END 2019-12-30 09:55 | disposition home or self-care (01) ==
LOC: M OPP 07:58
PROVIDERS: ATTEND Internal Medicine Gastroenterology
DX: Z12.11 Encounter for screening for malignant neoplasm of colon (principal); Z80.0 Family history of malignant neoplasm of digestive organs; Z83.71 Family history of colonic polyps; D12.0 Benign neoplasm of cecum; K57.30 Diverticulosis of large intestine without perforation or abscess without bleeding; K64.0 First degree hemorrhoids; I85.00 Esophageal varices without bleeding; K76.6 Portal hypertension; K74.60 Unspecified cirrhosis of liver; K31.89 Other diseases of stomach and duodenum; K21.9 Gastro-esophageal reflux disease without esophagitis; Z79.891 Long term (current) use of opiate analgesic; Z79.899 Other long term (current) drug therapy; Z88.2 Allergy status to sulfonamides; Z88.5 Allergy status to narcotic agent

== ENCOUNTER → 2020-04-05 | Outpatient (REF) | payer MEDICARE | LOC: M WUC 19:08 | PROVIDERS: ATTEND Physician Assistant | DX: R30.0 Dysuria (principal) ==

== ENCOUNTER → 2020-05-04 | Outpatient (REF) | payer MEDICARE | LOC: M LAB REF 16:26 | PROVIDERS: ATTEND Nurse Practitioner Adult Health | DX: K74.60 Unspecified cirrhosis of liver (principal) ==

== ENCOUNTER 2020-06-22 08:07 | Emergency (ER) | payer MEDICARE ==
[~2020-06-22] VITALS: Ht 175.3 cm; Wt 92.2 kg
[2020-06-22 09:18] LABS: BASO # 0.1 10^3/uL (0.0-0.2); BASO % 0.9 % (0.0-1.0); EOS # 0.1 10^3/uL (0.0-0.5); EOS % 2.4 % (0.0-3.0); HEMATOCRIT 46.6 % (36.0-47.0); HEMOGLOBIN 15.9 g/dl (12.0-15.5); LYMPH # 1.9 10^3/uL (1.5-5.0); LYMPH % 34.6 % (24.0-44.0); MEAN CORPUSCULAR HEMOGLOBIN 32.2 pg (27.0-33.0); MEAN CORPUSCULAR HGB CONC 34.1 g/dl (32.0-36.5); MEAN CORPUSCULAR VOLUME 94.3 fl (80.0-96.0); MONO # 0.4 10^3/uL (0.0-0.8); MONO % 8.2 % (0.0-5.0); NEUTROPHILS # 2.9 10^3/uL (1.5-8.5); NEUTROPHILS % 53.5 % (36.0-66.0); PLATELET COUNT, AUTOMATED 195 10^3/uL (150-450); RED BLOOD COUNT 4.94 10^6/uL (4.00-5.40); WHITE BLOOD COUNT 5.3 10^3/uL (4.0-10.0)
[2020-06-22 09:47] LABS: ALBUMIN 4.2 GM/DL (3.2-5.2); ALT/SGPT 48 U/L (12-78); AMYLASE 68 U/L (25-115); BILIRUBIN,DIRECT 0.2 MG/DL (0.0-0.2); BILIRUBIN,TOTAL 0.6 MG/DL (0.2-1.0); BLOOD UREA NITROGEN 8 MG/DL (7-18); CALCIUM LEVEL 8.8 MG/DL (8.8-10.2); CARBON DIOXIDE LEVEL 28 MEQ/L (21-32); CHLORIDE LEVEL 109 MEQ/L (98-107); CREATININE FOR GFR 0.83 MG/DL (0.55-1.30); GLOMERULAR FILTRATION RATE > 60.0 (>45); GLUCOSE, FASTING 84 MG/DL (70-100); LIPASE 136 U/L (73-393); POTASSIUM SERUM 3.9 MEQ/L (3.5-5.1); SODIUM LEVEL 142 MEQ/L (136-145)
[2020-06-22] MEDS ORDERED: ISOVUE-370 76% 100ML VIAL As Ordered ONE (10:03)
--- NOTE | 2020-06-22 10:34 | REP ---
INDICATION: Abdominal Pain COMPARISON: 07/20/2019. TECHNIQUE: CT Scan of the abdomen and pelvis was performed with intravenous administration of 100 cc of Isovue 370, without oral contrast. FINDINGS: Lung bases: Unremarkable. Liver: There is a stable 2.4 cm cyst in the right lobe of the liver. There is a stable subcentimeter cyst at the right dome of the liver and inferior right lobe. Liver appears cirrhotic with a patent umbilical vein. Gallbladder: Prior cholecystectomy. Spleen: Normal. Adrenals: Normal. Pancreas: Normal. Kidneys: Normal. Small and large bowel: There are multiple sigmoid diverticula present without acute diverticulitis. There is no bowel obstruction. Free fluid: None. Abdominal aorta: No aneurysm or dissection. Adenopathy: There are stable nonenlarged portal and periaortic lymph nodes. Appendix: Prior appendectomy. Osseous structures: There are degenerative changes of the spine without compression deformity. Pelvis: There has been a prior hysterectomy. IMPRESSION: Stable chronic findings, no acute abnormalities detected. <Electronically signed by Jovani Llanes > 06/22/20 1034
[2020-06-22 11:27] VITALS: BP 143/81
--- NOTE | 2020-06-23 06:09 | ECGEPIP ---
[facility] - ED Test Date: 2020-06-22 Pat Name: MARK ANTHONY COLBERT Department: Room: - Gender: Female Mammography Technologist: Jamie BRADSHAW : 1955 Requested By: Jessica Rod Order Number: [id number] Reading MD: Jessica Rod Measurements Intervals [place] Rate: 73 P: 35 IN: 138 QRS: 4 QRSD: 89 T: 23 QT: 397 QTc: 440 Interpretive Statements SINUS RHYTHM WITH MARKED SINUS ARRHYTHMIA NONSPECIFIC ST T WAVE CHANGES DELAYED R WAVE PROGRESSION POSSIBLE INFERIOR MYOCARDIAL INFARCTION, AGE UNDETERMINED CW 07/20/[address] T WAVE CHANGES Electronically Signed on 06-23-2020 6:08:27 EST by Jessica Rod
== END 2020-06-22 11:29 | disposition home or self-care (01) ==
LOC: M ED 08:07
DX: R10.9 Unspecified abdominal pain (principal); E11.9 Type 2 diabetes mellitus without complications; I10 Essential (primary) hypertension; Z86.19 Personal history of other infectious and parasitic diseases; K57.92 Diverticulitis of intestine, part unspecified, without perforation or abscess without bleeding; Z79.899 Other long term (current) drug therapy; Z88.5 Allergy status to narcotic agent; Z88.2 Allergy status to sulfonamides
CPT/HCPCS: 74177; 80048; 80076; 81001; 82150; 83690; 85025; 93005; 99284; Q9967

== ENCOUNTER 2020-07-27 07:40 | Emergency (ER) | payer MEDICARE ==
[~2020-07-27] VITALS: Ht 175.3 cm; Wt 93.1 kg
[2020-07-27 08:15] LABS: BASO % 0.8 % (0.0-1.0); EOS # 0.1 10^3/uL (0.0-0.5); EOS % 2.1 % (0.0-3.0); HEMOGLOBIN 15.9 g/dl (12.0-15.5); LYMPH # 1.3 10^3/uL (1.5-5.0); LYMPH % 25.8 % (24.0-44.0); MEAN CORPUSCULAR HGB CONC 34.6 g/dl (32.0-36.5); MEAN CORPUSCULAR VOLUME 92.6 fl (80.0-96.0); MONO # 0.3 10^3/uL (0.0-0.8); NEUTROPHILS # 3.4 10^3/uL (1.5-8.5); NEUTROPHILS % 65.1 % (36.0-66.0); PLATELET COUNT, AUTOMATED 185 10^3/uL (150-450); RED BLOOD COUNT 4.97 10^6/uL (4.00-5.40); WHITE BLOOD COUNT 5.2 10^3/uL (4.0-10.0)
[2020-07-27] MEDS ORDERED: GI COCKTAIL 50ML BTL(HYOSCYAMINE/MAALOX/LIDOCAINE VISCOUS)(1:3:1) PO ONE (08:15)
--- NOTE | 2020-07-27 08:25 | REP ---
INDICATION: CHEST PAIN. COMPARISON: Comparison chest x-ray July 20, 2019. TECHNIQUE: Portable upright AP chest radiograph. FINDINGS: EKG monitoring electrodes overlie the chest. The lungs are well inflated and clear. The pleural angles are sharp.. Heart size is normal. Pulmonary vasculature is not increased. No acute bony abnormality. IMPRESSION: No active disease. <Electronically signed by Nathan Puente > 07/27/20 0895
[2020-07-27 08:47] LABS: ALBUMIN 4.1 GM/DL (3.2-5.2); ALT/SGPT 50 U/L (12-78); BILIRUBIN,DIRECT 0.2 MG/DL (0.0-0.2); BILIRUBIN,TOTAL 0.5 MG/DL (0.2-1.0); BLOOD UREA NITROGEN 9 MG/DL (7-18); CARBON DIOXIDE LEVEL 26 MEQ/L (21-32); CHLORIDE LEVEL 106 MEQ/L (98-107); CK-MB VALUE MASS 2.1 NG/ML (<3.6); CPK CREATINE PHOSPHOKINASE 145 U/L (26-192); CREATININE FOR GFR 0.89 MG/DL (0.55-1.30); FREE T4 1.01 NG/DL (0.76-1.46); GLOMERULAR FILTRATION RATE > 60.0 (>45); GLUCOSE, FASTING 141 MG/DL (70-100); LIPASE 101 U/L (73-393); MB/CK RELATIVE INDEX 1.45 (< OR =4); POTASSIUM SERUM 3.7 MEQ/L (3.5-5.1); SODIUM LEVEL 141 MEQ/L (136-145); TOTAL PROTEIN 7.6 GM/DL (6.4-8.2); TROPONIN I < 0.02 NG/ML (< 0.10)
[2020-07-27] MEDS ORDERED: SUCR1TA PO (13:53)
[2020-07-27 14:00] VITALS: BP 143/92
--- NOTE | 2020-07-28 08:45 | ECGEPIP ---
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
--- NOTE | 2020-07-28 08:50 | ECGEPIP ---
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
== END 2020-07-27 14:13 | disposition home or self-care (01) ==
LOC: M ED 07:40
DX: K21.9 Gastro-esophageal reflux disease without esophagitis (principal); E11.9 Type 2 diabetes mellitus without complications; I10 Essential (primary) hypertension; B19.20 Unspecified viral hepatitis C without hepatic coma; Z79.899 Other long term (current) drug therapy; Z79.4 Long term (current) use of insulin; Z88.2 Allergy status to sulfonamides; Z88.5 Allergy status to narcotic agent; Z88.8 Allergy status to other drugs, medicaments and biological substances

== ENCOUNTER → 2020-09-16 | Outpatient (REF) | payer MEDICARE ==
[~2020-09-16] MED LIST changes: +SUCR1TA PO
== END ==
LOC: M LAB REF 12:03
PROVIDERS: ATTEND Nurse Practitioner Adult Health
DX: K74.60 Unspecified cirrhosis of liver (principal)

== ENCOUNTER → 2020-11-30 | Outpatient (CLI) | payer MEDICARE ==
--- NOTE | 2020-11-30 09:18 | REPMRS ---
Patient History The patient states she has not had a clinical breast exam in over a year. Family history of colorectal cancer at age 50 or over in father. No Hormone Replacement Therapy Patient states no breast complaints today. Patient has signed MRS History Sheet. Digital Woman Screen Mammo: November 30, 2020 - Exam #: [id number] Bilateral CC and MLO view(s) were taken. Technologist: Akilah Perla, Technologist Prior study comparison: November 08, 2019, bilateral digital woman screen mammo performed at [facility]. April 20, 2018, bilateral digital woman screen mammo performed at [facility]. FINDINGS: The breast tissue is almost entirely fat. Screening. Digital screening (2D) mammography was performed bilaterally in the CC and MLO projections. Additionally, breast tomosynthesis (3D mammography) was performed bilaterally in the CC and MLO projections. Todays exam was compared to the prior exam/exams. By history, the patient has no complaints of a palpable breast abnormality or other significant breast complaints. The breasts are unchanged in size and shape. There are no viridiana-soft tissue densities or spiculated masses. There is no internal architectural distortion. Once again, stable benign appearing calcifications are seen.There are no suspicious viridiana-calcific clusters. Skin thickening or nipple retraction is not present. IMPRESSION: BI-RADS Category 2- Benign Findings. There is no evidence of malignant alteration of the breasts. Followup examination recommended in one year. The Volpara volumetric breast density category is A, the breasts are almost entirely fatty. This mammogram was read with the assistance of [facility],an FDA approved computer aided detection system for mammography. The lifetime Tyrer-Cuzick score is 6.2 % Negative x-ray reports should not delay surgical consultation if a dominant or clinically suspicious mass is present. Not all breast cancers can be identified by mammography. Therefore, we recommend that you continue to perform regular breast self-examination and physical examination and then promptly contact your physician of any concerns or changes. Adenosis and dense breasts may obscure an underlying neoplasm. Assessment: BI-RADS/ACR category 2 mammogram. Benign Findings. Recommendation Routine screening mammogram of both breasts in 1 year. Electronically Signed By: Amaury Johnson DO 11/30/20 0917
== END ==
LOC: M WHC 08:22
PROVIDERS: ATTEND Nurse Practitioner Adult Health
DX: Z12.31 Encounter for screening mammogram for malignant neoplasm of breast (principal); Z80.8 Family history of malignant neoplasm of other organs or systems

== ENCOUNTER → 2020-12-17 | Outpatient (REF) | payer MEDICARE | LOC: M LAB REF 09:26 | PROVIDERS: ATTEND Nurse Practitioner Adult Health | DX: R19.7 Diarrhea, unspecified (principal) ==

== ENCOUNTER → 2021-02-25 | Outpatient (CLI) | payer MEDICARE ==
[2021-02-25 10:36] LABS: HEMATOCRIT 45.6 % (36.0-47.0); HEMOGLOBIN 15.7 g/dl (12.0-15.5); MEAN CORPUSCULAR HEMOGLOBIN 32.2 pg (27.0-33.0); MEAN CORPUSCULAR HGB CONC 34.4 g/dl (32.0-36.5); MEAN CORPUSCULAR VOLUME 93.4 fl (80.0-96.0); PLATELET COUNT, AUTOMATED 179 10^3/uL (150-450); RED BLOOD COUNT 4.88 10^6/uL (4.00-5.40); WHITE BLOOD COUNT 5.4 10^3/uL (4.0-10.0)
--- NOTE | 2021-02-25 10:36 | REP ---
INDICATION: LEFT KNEE OSTEOARTHRITIS-LAB/EKG FIRST. COMPARISON: Multiple FINDINGS: The superior mediastinal structures are midline. The cardiac silhouette is unremarkable in size, shape, and position. The diaphragmatic surfaces of the lungs are regular, and the costophrenic angles are clear. The pulmonary wolf are clear. The imaged osseous structures are intact. IMPRESSION: There is no acute cardiopulmonary disease. <Electronically signed by Amaury Johnson > 02/25/21 1037
[2021-02-25 10:54] LABS: INR 1.13
[2021-02-25 11:34] LABS: ALT/SGPT 43 U/L (12-78); BILIRUBIN,TOTAL 0.5 MG/DL (0.2-1.0); BLOOD UREA NITROGEN 9 MG/DL (7-18); CALCIUM LEVEL 9.1 MG/DL (8.8-10.2); CARBON DIOXIDE LEVEL 25 MEQ/L (21-32); CHLORIDE LEVEL 109 MEQ/L (98-107); CREATININE FOR GFR 0.79 MG/DL (0.55-1.30); GLOMERULAR FILTRATION RATE > 60.0 (>45); GLUCOSE, FASTING 88 MG/DL (70-100); POTASSIUM SERUM 4.2 MEQ/L (3.5-5.1); SODIUM LEVEL 141 MEQ/L (136-145); TOTAL PROTEIN 7.3 GM/DL (6.4-8.2)
[2021-02-25 12:35] LABS: ERYTHROCYTE SEDIMENTATION RATE 5 mm/hr (0-30)
--- NOTE | 2021-02-25 22:48 | ECGEPIP ---
[facility] Test Date: 2021-02-25 Pat Name: MARK ANTHONY COLBERT Department: Room: - Gender: Female Certified Histologic Technician: TD : 1955 Requested By: Rubin Raza Order Number: [id number] Reading MD: Jose Hernandez Measurements Intervals [place] Rate: 75 P: 25 MD: 130 QRS: 22 QRSD: 78 T: 39 QT: 384 QTc: 428 Interpretive Statements Normal sinus rhythm Nonspecific ST abnormality POSSIBLE INFERIOR NC, OLD Artifact noted in the limb leads Compared to prior tracings in the system. No remarkable changes Electronically Signed on 02-25-2021 22:48:21 EDT by Jose Hernandez
== END ==
LOC: M LAB 09:09
PROVIDERS: ATTEND Orthopaedic Surgery
DX: Z01.818 Encounter for other preprocedural examination (principal); Z96.652 Presence of left artificial knee joint

== ENCOUNTER → 2021-02-25 | Outpatient (REF) | payer MEDICARE | LOC: M LAB REF 10:51 | PROVIDERS: ATTEND Nurse Practitioner Adult Health | DX: R19.7 Diarrhea, unspecified (principal) ==

== ENCOUNTER → 2021-04-22 | Outpatient (CLI) | payer MEDICARE ==
--- NOTE | 2021-04-22 12:38 | REP ---
INDICATION: PAIN. NO HISTORY OF TRAUMA HAS BEEN GIVEN. COMPARISON: None. TECHNIQUE: Nine views FINDINGS: There is moderate C4-5 and C5-6 disc space narrowing where anterior and posterior osteophytic ridging is the heaviest. There is evidence of bilateral C4-5 and C5-6 foraminal encroachment. Even with the swimmer's view the C7-T1 level cannot be evaluated. The facet joints appear to be well aligned bilaterally. There is some limitation of flexion and extension radiographically. The facet joints remain aligned through flexion and extension. Degenerative facet and uncovertebral joint changes are present at every level bilaterally. IMPRESSION: Chronic changes and exam limitations as described above. <Electronically signed by Amaury Johnson > 04/22/21 [id number]
== END ==
LOC: M WUC 08:01
PROVIDERS: ATTEND Nurse Practitioner Adult Health
DX: M54.9 Dorsalgia, unspecified (principal); M50.30 Other cervical disc degeneration, unspecified cervical region

== ENCOUNTER → 2021-04-27 | Outpatient (CLI) | payer MEDICARE ==
--- NOTE | 2021-04-27 11:25 | REP ---
INDICATION: F/U HEP C. COMPARISON: 06/10/2020 TECHNIQUE: Real-time sonographic evaluation of the right upper quadrant with Doppler FINDINGS: Multiple ultrasonographic images of the liver shows diffuse increased echos throughout the hepatic parenchyma. There are hepatic cystic lesions status quo. There are no new focal abnormalities. There is no meera intrahepatic ductal dilatation. The common bile duct measures approximately 12 mm in its greatest transverse dimension. Images of the pancreatic region show no gross abnormality. The imaged portion of the right kidney is unremarkable. IMPRESSION: Status post cholecystectomy. Fatty infiltration of the liver with a coarsened hepatic parenchymal echo pattern status quo. The common bile duct is again seen to be upper limits of normal. Accredited by the [employer] in General Ultrasound. <Electronically signed by Amaury Johnson > 04/27/21 1126
== END ==
LOC: M RAD 08:25
PROVIDERS: ATTEND Nurse Practitioner Adult Health
DX: B18.2 Chronic viral hepatitis C (principal)

== ENCOUNTER → 2021-05-25 | Outpatient (REF) | payer MEDICARE | LOC: M LAB REF 16:40 | PROVIDERS: ATTEND Nurse Practitioner Adult Health | DX: J02.9 Acute pharyngitis, unspecified (principal) ==

== ENCOUNTER 2021-06-02 09:33 | Emergency (ER) | payer MEDICARE ==
[~2021-06-02] VITALS: Ht 175.3 cm; Wt 92.4 kg
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
--- NOTE | 2021-06-02 10:22 | REP ---
INDICATION: pain COMPARISON: None. TECHNIQUE: AP, lateral, bilateral oblique views right foot. FINDINGS: Osteopenia and moderate to advanced degenerative arthritic changes. Findings are most pronounced at the 1st and 2nd metatarsophalangeal joints including subchondral sclerosis, joint space narrowing, osteophytosis and cortical irregularities as well as subchondral cystic changes at the head of the 1st and 2nd metatarsal bones. There is no evidence for acute fracture or dislocation. IMPRESSION: Osteopenia and generalized arthritic degenerative changes most notably involving 1st and 2nd metatarsophalangeal joints. <Electronically signed by Ethan Mcgee > 06/02/21 1014
[2021-06-02 12:24] LABS: BASO # 0.1 10^3/uL (0.0-0.2); BASO % 0.7 % (0.0-1.0); EOS # 0.2 10^3/uL (0.0-0.5); EOS % 2.2 % (0.0-3.0); HEMATOCRIT 45.1 % (36.0-47.0); HEMOGLOBIN 15.5 g/dl (12.0-15.5); LYMPH # 2.2 10^3/uL (1.5-5.0); LYMPH % 31.4 % (24.0-44.0); MEAN CORPUSCULAR HEMOGLOBIN 32.2 pg (27.0-33.0); MEAN CORPUSCULAR HGB CONC 34.4 g/dl (32.0-36.5); MEAN CORPUSCULAR VOLUME 93.6 fl (80.0-96.0); MONO # 0.6 10^3/uL (0.0-0.8); MONO % 8.8 % (2.0-8.0); NEUTROPHILS % 56.6 % (36.0-66.0); PLATELET COUNT, AUTOMATED 164 10^3/uL (150-450); RED BLOOD COUNT 4.82 10^6/uL (4.00-5.40); WHITE BLOOD COUNT 7.1 10^3/uL (4.0-10.0)
[2021-06-02 12:41] LABS: INR 1.01; PROTHROMBIN TIME 13.7 SECONDS (12.7-14.5)
[2021-06-02 12:42] LABS: PARTIAL THROMBOPLASTIN TIME 34.4 SECONDS (25.9-37.0)
[2021-06-02 12:57] LABS: ALBUMIN 4.1 GM/DL (3.2-5.2); ALT/SGPT 36 U/L (12-78); BILIRUBIN,TOTAL 0.6 MG/DL (0.2-1.0); BLOOD UREA NITROGEN 8 MG/DL (7-18); CALCIUM LEVEL 9.3 MG/DL (8.8-10.2); CARBON DIOXIDE LEVEL 28 MEQ/L (21-32); CHLORIDE LEVEL 107 MEQ/L (98-107); CREATININE FOR GFR 0.76 MG/DL (0.55-1.30); GLOMERULAR FILTRATION RATE > 60.0 (>45); GLUCOSE, FASTING 93 MG/DL (70-100); POTASSIUM SERUM 4.1 MEQ/L (3.5-5.1); SODIUM LEVEL 141 MEQ/L (136-145); TOTAL PROTEIN 7.7 GM/DL (6.4-8.2); URIC ACID 3.9 MG/DL (2.6-6.0)
[2021-06-02] MEDS ORDERED: INDO50CA91 PO (13:45)
[2021-06-02] MEDS ORDERED: INDOMETHACIN 25 MG CAP PO ONE (13:50)
[2021-06-02 14:14] VITALS: BP 134/84
== END 2021-06-02 14:19 | disposition home or self-care (01) ==
LOC: M ED 09:33
DX: Z04.1 Encounter for examination and observation following transport accident (principal); M10.9 Gout, unspecified; K74.60 Unspecified cirrhosis of liver; Z79.899 Other long term (current) drug therapy

== ENCOUNTER 2021-07-31 07:33 | Emergency (ER) | payer MEDICARE ==
[~2021-07-31] VITALS: Ht 172.7 cm; Wt 95.2 kg
[~2021-07-31 07:33] MED LIST changes: +INDO50CA91 PO
[2021-07-31] MEDS ORDERED: METH-1164 PO (12:22)
[2021-07-31 12:35] VITALS: BP 157/85
== END 2021-07-31 12:38 | disposition home or self-care (01) ==
LOC: M ED 07:33
DX: M51.36 Other intervertebral disc degeneration, lumbar region (principal); M48.061 Spinal stenosis, lumbar region without neurogenic claudication; K44.9 Diaphragmatic hernia without obstruction or gangrene; M10.9 Gout, unspecified; G89.29 Other chronic pain; Z79.899 Other long term (current) drug therapy; Z88.2 Allergy status to sulfonamides; Z88.5 Allergy status to narcotic agent

== ENCOUNTER → 2021-10-06 | Outpatient (CLI) | payer MEDICARE ==
[~2021-10-06] MED LIST changes: +ACET650T15 PO; +METH-1164 PO
== END ==
LOC: M LABSMTC 10:05
PROVIDERS: ATTEND Anesthesiology
DX: Z01.818 Encounter for other preprocedural examination (principal)

== ENCOUNTER 2021-10-11 08:45 | Day surgery (SDC) | payer MEDICARE ==
[~2021-10-11] VITALS: Ht 172.7 cm; Wt 433.2 kg
[~2021-10-11 08:45] MED LIST changes: +NS 1,000 ML IV ONE
[2021-10-11] MEDS ORDERED: fentaNYL 100 MCG/2 ML INJECTION As Ordered ONE (10:42)
[2021-10-11] MEDS ORDERED: propofoL 200 MG/20 ML VIAL As Ordered ONE (11:02)
[2021-10-11 11:14] VITALS: BP 144/85
== END 2021-10-11 11:17 | disposition home or self-care (01) ==
LOC: M OPP 08:45
PROVIDERS: ATTEND Internal Medicine Gastroenterology
DX: K74.60 Unspecified cirrhosis of liver (principal); I85.00 Esophageal varices without bleeding; Z80.0 Family history of malignant neoplasm of digestive organs; Z79.899 Other long term (current) drug therapy; Z88.2 Allergy status to sulfonamides; Z88.5 Allergy status to narcotic agent; Z87.891 Personal history of nicotine dependence
CPT/HCPCS: 43235; J3010

== ENCOUNTER → 2022-03-15 | Outpatient (CLI) | payer MEDICARE ==
[~2022-03-15] MED LIST changes: +CITRACAL MAXIMU1 TAB PO; -CITRTAB16 PO; -NS 1,000 ML IV ONE
== END ==
LOC: M WHC 08:21
PROVIDERS: ATTEND Nurse Practitioner Adult Health
DX: Z12.31 Encounter for screening mammogram for malignant neoplasm of breast (principal)

== ENCOUNTER → 2022-03-24 | Outpatient (REF) | payer MEDICARE ==
[~2022-03-24] MED LIST changes: +CYCL5TAB PO; +LIDO5DIS41 TOP
== END ==
LOC: M LAB REF 09:20
PROVIDERS: ATTEND Nurse Practitioner Adult Health
DX: R10.9 Unspecified abdominal pain (principal)

== ENCOUNTER → 2022-03-24 | Outpatient (CLI) | payer MEDICARE ==
[~2022-03-24] MED LIST changes: -CYCL5TAB PO; +GASTROGRAFIN SOLUTION 30ML (Q9963) As Ordered ONE; +ISOVUE-370 76% 100ML VIAL As Ordered ONE; -LIDO5DIS41 TOP
== END ==
LOC: M RAD 07:44
PROVIDERS: ATTEND Nurse Practitioner Adult Health
DX: K76.89 Other specified diseases of liver (principal); R10.9 Unspecified abdominal pain; M48.061 Spinal stenosis, lumbar region without neurogenic claudication
CPT/HCPCS: 74178; Q9963; Q9967

== ENCOUNTER 2022-04-12 07:36 | Emergency (ER) | payer MEDICARE ==
[~2022-04-12] VITALS: Ht 175.3 cm; Wt 93.6 kg
[~2022-04-12 07:36] MED LIST changes: -GASTROGRAFIN SOLUTION 30ML (Q9963) As Ordered ONE; -ISOVUE-370 76% 100ML VIAL As Ordered ONE
[2022-04-12] MEDS ORDERED: LIDOCAINE 5% (LIDODERM) PATCH TD ONE (10:20)
[2022-04-12 11:27] LABS: BASO % 0.8 % (0.0-1.0); EOS # 0.1 10^3/uL (0.0-0.5); EOS % 2.4 % (0.0-3.0); HEMATOCRIT 42.5 % (36.0-47.0); HEMOGLOBIN 14.7 g/dl (12.0-15.5); LYMPH # 1.7 10^3/uL (1.5-5.0); LYMPH % 33.7 % (24.0-44.0); MEAN CORPUSCULAR HEMOGLOBIN 32.4 pg (27.0-33.0); MEAN CORPUSCULAR HGB CONC 34.6 g/dl (32.0-36.5); MEAN CORPUSCULAR VOLUME 93.6 fl (80.0-96.0); MONO # 0.4 10^3/uL (0.0-0.8); MONO % 7.8 % (2.0-8.0); NEUTROPHILS # 2.8 10^3/uL (1.5-8.5); NEUTROPHILS % 55.3 % (36.0-66.0); PLATELET COUNT, AUTOMATED 157 10^3/uL (150-450); RED BLOOD COUNT 4.54 10^6/uL (4.00-5.40)
[2022-04-12 11:49] LABS: BLOOD UREA NITROGEN 8 MG/DL (7-18); CARBON DIOXIDE LEVEL 27 MEQ/L (21-32); CHLORIDE LEVEL 108 MEQ/L (98-107); CREATININE FOR GFR 0.72 MG/DL (0.55-1.30); GLOMERULAR FILTRATION RATE > 60.0 (>45); GLUCOSE, FASTING 85 MG/DL (70-100); POTASSIUM SERUM 3.9 MEQ/L (3.5-5.1); SODIUM LEVEL 142 MEQ/L (136-145)
[2022-04-12 11:53] LABS: CK-MB VALUE MASS 3.3 NG/ML (<3.6); MB/CK RELATIVE INDEX 1.68 (< OR =4)
[2022-04-12] MEDS ORDERED: ISOVUE-370 76% 100ML VIAL As Ordered ONE (11:54)
[2022-04-12 13:42] LABS: CK-MB VALUE MASS 2.8 NG/ML (<3.6); MB/CK RELATIVE INDEX 1.56 (< OR =4)
[2022-04-12] MEDS ORDERED: GI COCKTAIL 50ML BTL(HYOSCYAMINE/MAALOX/LIDOCAINE VISCOUS)(1:3:1) PO ONE (14:10)
[2022-04-12] MEDS ORDERED: ACETAMINOPHEN 500 MG TAB PO ONE (14:15)
[2022-04-12 15:37] LABS: MB/CK RELATIVE INDEX 1.62 (< OR =4)
[2022-04-12] MEDS ORDERED: CYCL5TAB PO (15:47)
[2022-04-12] MEDS ORDERED: LIDO5DIS41 TOP (15:47)
[2022-04-12] MEDS ORDERED: KETOROLAC 30 MG/ML 1ML VIAL IV ONE (15:50)
[2022-04-12 15:55] VITALS: BP 152/74
== END 2022-04-12 16:24 | disposition home or self-care (01) ==
LOC: M ED 07:36
DX: S46.911A Strain of unspecified muscle, fascia and tendon at shoulder and upper arm level, right arm, initial encounter (principal); S43.401A Unspecified sprain of right shoulder joint, initial encounter; X58.XXXA Exposure to other specified factors, initial encounter; Y92.099 Unspecified place in other non-institutional residence as the place of occurrence of the external cause; R07.89 Other chest pain; R91.1 Solitary pulmonary nodule; M19.011 Primary osteoarthritis, right shoulder; F41.9 Anxiety disorder, unspecified; K57.92 Diverticulitis of intestine, part unspecified, without perforation or abscess without bleeding; K21.9 Gastro-esophageal reflux disease without esophagitis; Z86.19 Personal history of other infectious and parasitic diseases; K44.9 Diaphragmatic hernia without obstruction or gangrene; Z79.899 Other long term (current) drug therapy; Z88.5 Allergy status to narcotic agent; Z88.2 Allergy status to sulfonamides
CPT/HCPCS: 71275; 73030; 80048; 82550; 82553; 84484; 85025; 93005; 93041; 94760; 96374; 99285; J1885; Q9967

== ENCOUNTER → 2022-04-28 | Outpatient (CLI) | payer MEDICARE ==
[~2022-04-28] MED LIST changes: +CYCL5TAB PO; +LIDO5DIS41 TOP
[2022-04-28 14:50] LABS: BASO # 0.1 10^3/uL (0.0-0.2); BASO % 0.9 % (0.0-1.0); EOS # 0.2 10^3/uL (0.0-0.5); EOS % 3.3 % (0.0-3.0); HEMOGLOBIN 14.8 g/dl (12.0-15.5); LYMPH # 2.1 10^3/uL (1.5-5.0); LYMPH % 35.5 % (24.0-44.0); MEAN CORPUSCULAR HEMOGLOBIN 31.8 pg (27.0-33.0); MEAN CORPUSCULAR HGB CONC 32.9 g/dl (32.0-36.5); MEAN CORPUSCULAR VOLUME 96.8 fl (80.0-96.0); MONO # 0.5 10^3/uL (0.0-0.8); MONO % 9.1 % (2.0-8.0); PLATELET COUNT, AUTOMATED 174 10^3/uL (150-450); RED BLOOD COUNT 4.65 10^6/uL (4.00-5.40); WHITE BLOOD COUNT 5.8 10^3/uL (4.0-10.0)
[2022-04-28 15:35] LABS: ERYTHROCYTE SEDIMENTATION RATE 7 mm/hr (0-30)
== END ==
LOC: M PLAIMG 10:18
PROVIDERS: ATTEND Orthopaedic Surgery
DX: M50.33 Other cervical disc degeneration, cervicothoracic region (principal); M19.011 Primary osteoarthritis, right shoulder; M48.02 Spinal stenosis, cervical region; M43.02 Spondylolysis, cervical region; M51.34 Other intervertebral disc degeneration, thoracic region; M51.24 Other intervertebral disc displacement, thoracic region

== ENCOUNTER 2022-08-23 08:31 | Emergency (ER) | payer MEDICARE ==
[~2022-08-23] VITALS: Ht 172.7 cm; Wt 86.6 kg
[2022-08-23 09:28] LABS: BASO % 0.8 % (0.0-1.0); EOS # 0.1 10^3/uL (0.0-0.5); EOS % 1.7 % (0.0-3.0); HEMATOCRIT 44.3 % (36.0-47.0); HEMOGLOBIN 15.3 g/dl (12.0-15.5); LYMPH # 1.6 10^3/uL (1.5-5.0); LYMPH % 30.2 % (24.0-44.0); MEAN CORPUSCULAR HEMOGLOBIN 32.6 pg (27.0-33.0); MEAN CORPUSCULAR HGB CONC 34.5 g/dl (32.0-36.5); MEAN CORPUSCULAR VOLUME 94.5 fl (80.0-96.0); MONO # 0.4 10^3/uL (0.0-0.8); MONO % 8.2 % (2.0-8.0); NEUTROPHILS # 3.1 10^3/uL (1.5-8.5); NEUTROPHILS % 58.7 % (36.0-66.0); PLATELET COUNT, AUTOMATED 152 10^3/uL (150-450); RED BLOOD COUNT 4.69 10^6/uL (4.00-5.40); WHITE BLOOD COUNT 5.3 10^3/uL (4.0-10.0)
[2022-08-23 09:53] LABS: BLOOD UREA NITROGEN 10 MG/DL (9-23); CALCIUM LEVEL 8.8 MG/DL (8.3-10.6); CARBON DIOXIDE LEVEL 27 MMOL/L (20-31); CHLORIDE LEVEL 107 MMOL/L (98-107); CREATININE FOR GFR 0.69 MG/DL (0.55-1.30); GLOMERULAR FILTRATION RATE > 60.0 (>45); GLUCOSE, FASTING 107 MG/DL (74-106); POTASSIUM SERUM 4.1 MMOL/L (3.5-5.1); SODIUM LEVEL 143 MMOL/L (136-145)
[2022-08-23 09:54] LABS: CK-MB VALUE MASS 2.8 NG/ML (<3.6)
[2022-08-23 09:58] LABS: CPK CREATINE PHOSPHOKINASE 276 U/L (34-145); MB/CK RELATIVE INDEX 1.01 (< OR =4)
[2022-08-23] MEDS ORDERED: ISOVUE-370 76% 100ML VIAL As Ordered ONE (10:12)
[2022-08-23 11:22] VITALS: BP 138/83
== END 2022-08-23 11:23 | disposition home or self-care (01) ==
LOC: M ED 08:31
DX: R07.9 Chest pain, unspecified (principal); K21.9 Gastro-esophageal reflux disease without esophagitis; E78.5 Hyperlipidemia, unspecified; M19.019 Primary osteoarthritis, unspecified shoulder; B18.2 Chronic viral hepatitis C; K74.60 Unspecified cirrhosis of liver; Z87.891 Personal history of nicotine dependence; Z88.1 Allergy status to other antibiotic agents; Z88.5 Allergy status to narcotic agent; Z79.899 Other long term (current) drug therapy
CPT/HCPCS: 36415; 71045; 71275; 80048; 82550; 82553; 84484; 85025; 93005; 93041; 94760; 99285; Q9967

== ENCOUNTER 2022-11-05 14:50 | Emergency (ER) | payer MEDICARE ==
[~2022-11-05] VITALS: Ht 175.3 cm; Wt 97.8 kg
[2022-11-05 15:30] LABS: BASO # 0.1 10^3/uL (0.0-0.2); BASO % 0.9 % (0.0-1.0); EOS # 0.1 10^3/uL (0.0-0.5); EOS % 2.3 % (0.0-3.0); HEMATOCRIT 42.3 % (36.0-47.0); HEMOGLOBIN 14.8 g/dl (12.0-15.5); LYMPH # 1.9 10^3/uL (1.5-5.0); LYMPH % 34.9 % (24.0-44.0); MEAN CORPUSCULAR HEMOGLOBIN 33.1 pg (27.0-33.0); MEAN CORPUSCULAR VOLUME 94.6 fl (80.0-96.0); MONO # 0.3 10^3/uL (0.0-0.8); MONO % 5.5 % (2.0-8.0); NEUTROPHILS % 56.2 % (36.0-66.0); PLATELET COUNT, AUTOMATED 148 10^3/uL (150-450); RED BLOOD COUNT 4.47 10^6/uL (4.00-5.40); WHITE BLOOD COUNT 5.3 10^3/uL (4.0-10.0)
[2022-11-05 15:50] LABS: LIPASE 31 U/L (12-53)
[2022-11-05 15:53] LABS: ALBUMIN 3.8 G/DL (3.2-5.2); ALKALINE PHOSPHATASE 93 U/L (46-116); ALT/SGPT 35 U/L (7.0-40); AST/SGOT 35 U/L (<34); BILIRUBIN,DIRECT 0.2 MG/DL (<0.4); BILIRUBIN,TOTAL 0.5 MG/DL (0.3-1.2); BLOOD UREA NITROGEN 12 MG/DL (9-23); CALCIUM LEVEL 8.7 MG/DL (8.3-10.6); CARBON DIOXIDE LEVEL 27 MMOL/L (20-31); CHLORIDE LEVEL 110 MMOL/L (98-107); CK-MB VALUE MASS 3.5 NG/ML (<3.6); CREATININE FOR GFR 0.69 MG/DL (0.55-1.30); GLOMERULAR FILTRATION RATE > 60.0 (>45); GLUCOSE, FASTING 141 MG/DL (74-106); POTASSIUM SERUM 3.7 MMOL/L (3.5-5.1); SODIUM LEVEL 143 MMOL/L (136-145); TOTAL PROTEIN 6.8 G/DL (5.7-8.2)
[2022-11-05 15:59] LABS: CPK CREATINE PHOSPHOKINASE 220 U/L (34-145); MB/CK RELATIVE INDEX 1.59 (< OR =4)
[2022-11-05 16:57] LABS: CK-MB VALUE MASS 3.7 NG/ML (<3.6); CPK CREATINE PHOSPHOKINASE 205 U/L (34-145)
[2022-11-05 17:10] LABS: RSV AMPLIFICATION NEGATIVE (NEGATIVE)
[2022-11-05 17:27] VITALS: BP 137/80
== END 2022-11-05 17:30 | disposition home or self-care (01) ==
LOC: M ED 14:50
DX: R07.9 Chest pain, unspecified (principal); E78.5 Hyperlipidemia, unspecified; K21.9 Gastro-esophageal reflux disease without esophagitis; B19.20 Unspecified viral hepatitis C without hepatic coma; K57.90 Diverticulosis of intestine, part unspecified, without perforation or abscess without bleeding; F12.90 Cannabis use, unspecified, uncomplicated; Z88.5 Allergy status to narcotic agent; Z88.2 Allergy status to sulfonamides

== ENCOUNTER → 2022-12-09 | Outpatient (REF) | payer MEDICARE | LOC: M LAB REF 12:13 | PROVIDERS: ATTEND Student in an Organized Health Care Education/Training Program | DX: R30.0 Dysuria (principal) ==

== ENCOUNTER → 2022-12-13 | Outpatient (REF) | payer MEDICARE ==
[2022-12-13 11:43] LABS: INR 1.08; PARTIAL THROMBOPLASTIN TIME 31.5 SECONDS (24.8-34.2); PROTHROMBIN TIME 14.2 SECONDS (12.5-14.5)
[2022-12-14 13:07] LABS: HEPATITIS C QUANTITATION HCV Not Detected IU/mL (.)
== END ==
LOC: M LAB REF 10:46
PROVIDERS: ATTEND Nurse Practitioner Adult Health
DX: Z11.59 Encounter for screening for other viral diseases (principal); K74.69 Other cirrhosis of liver

== ENCOUNTER 2023-02-01 12:14 | Day surgery (SDC) | payer MEDICARE ==
[~2023-02-01] VITALS: Ht 172.7 cm; Wt 86.8 kg
[2023-02-01] MEDS ORDERED: fentaNYL 100 MCG/2 ML INJECTION As Ordered ONE (13:38)
[2023-02-01 13:57] VITALS: TEMP 97.3
[2023-02-01] MEDS ORDERED: LIDOCAINE 2% 100MG/5ML SDV (FOR ANES.) As Ordered ONE (14:06)
[2023-02-01] MEDS ORDERED: propofoL 200 MG/20 ML VIAL As Ordered ONE (14:06)
[2023-02-01 14:15] VITALS: BP 157/88; O2SAT 95
== END 2023-02-01 14:24 | disposition home or self-care (01) ==
LOC: M OPP 12:14
PROVIDERS: ATTEND Internal Medicine Gastroenterology
DX: K74.60 Unspecified cirrhosis of liver (principal); I85.00 Esophageal varices without bleeding; Z87.891 Personal history of nicotine dependence; Z79.1 Long term (current) use of non-steroidal anti-inflammatories (NSAID); Z79.899 Other long term (current) drug therapy; Z88.2 Allergy status to sulfonamides; Z88.5 Allergy status to narcotic agent
CPT/HCPCS: 43235; J3010

== ENCOUNTER 2023-06-26 07:33 | Emergency (ER) | payer MEDICARE ==
[~2023-06-26] VITALS: Ht 175.3 cm; Wt 87.8 kg
[2023-06-26] MEDS ORDERED: PANT40TA29 (07:42)
[2023-06-26] MEDS ORDERED: NS 2,630 ML in IV 1 EA IV ONE (08:15)
[2023-06-26] MEDS ORDERED: KETOROLAC 30 MG/ML 1ML VIAL IV ONE (08:15)
[2023-06-26 09:28] LABS: BASO % 0.6 % (0.0-1.0); EOS % 0.7 % (0.0-3.0); HEMATOCRIT 43.5 % (36.0-47.0); HEMOGLOBIN 15.2 g/dl (12.0-15.5); LYMPH # 0.8 10^3/uL (1.5-5.0); LYMPH % 15.3 % (24.0-44.0); MEAN CORPUSCULAR HEMOGLOBIN 32.8 pg (27.0-33.0); MEAN CORPUSCULAR HGB CONC 34.9 g/dl (32.0-36.5); MEAN CORPUSCULAR VOLUME 93.8 fl (80.0-96.0); MONO # 0.7 10^3/uL (0.0-0.8); MONO % 13.1 % (2.0-8.0); NEUTROPHILS # 3.8 10^3/uL (1.5-8.5); NEUTROPHILS % 70.1 % (36.0-66.0); PLATELET COUNT, AUTOMATED 115 10^3/uL (150-450); RED BLOOD COUNT 4.64 10^6/uL (4.00-5.40); WHITE BLOOD COUNT 5.4 10^3/uL (4.0-10.0)
[2023-06-26 09:35] LABS: ALBUMIN 3.8 G/DL (3.2-5.2); ALKALINE PHOSPHATASE 73 U/L (46-116); ALT/SGPT 30 U/L (7.0-40); AST/SGOT 32 U/L (<34); BILIRUBIN,TOTAL 0.7 MG/DL (0.3-1.2); BLOOD UREA NITROGEN 9 MG/DL (9-23); CALCIUM LEVEL 8.4 MG/DL (8.3-10.6); CARBON DIOXIDE LEVEL 27 MMOL/L (20-31); CHLORIDE LEVEL 110 MMOL/L (98-107); CREATININE FOR GFR 0.79 MG/DL (0.55-1.30); GLOMERULAR FILTRATION RATE > 60.0 (>45); GLUCOSE, FASTING 97 MG/DL (74-106); POTASSIUM SERUM 3.7 MMOL/L (3.5-5.1); SODIUM LEVEL 143 MMOL/L (136-145); TOTAL PROTEIN 6.6 G/DL (5.7-8.2)
[2023-06-26 09:49] LABS: ERYTHROCYTE SEDIMENTATION RATE 15 mm/hr (0-30)
[2023-06-26] MEDS ORDERED: ISOVUE-370 76% 100ML VIAL As Ordered ONE (10:05)
[2023-06-26] MEDS ORDERED: BENZONATATE 100MG CAPSULE PO ONE (11:30)
[2023-06-26] MEDS ORDERED: ALBU8.5H INH (11:34)
[2023-06-26] MEDS ORDERED: BENZ200C70 PO (11:34)
[2023-06-26] MEDS ORDERED: NIRM1TAB PO (11:34)
[2023-06-26 12:24] VITALS: BP 151/86; TEMP 97.1; O2SAT 97
== END 2023-06-26 12:32 | disposition home or self-care (01) ==
LOC: M ED 07:33
DX: U07.1 COVID-19 (principal); R22.0 Localized swelling, mass and lump, head; K21.9 Gastro-esophageal reflux disease without esophagitis; K74.60 Unspecified cirrhosis of liver; R51.9 Headache, unspecified; B18.9 Chronic viral hepatitis, unspecified; F17.200 Nicotine dependence, unspecified, uncomplicated; Z88.2 Allergy status to sulfonamides; Z88.5 Allergy status to narcotic agent; Z79.52 Long term (current) use of systemic steroids; Z79.899 Other long term (current) drug therapy
CPT/HCPCS: 36415; 70487; 71046; 80053; 83605; 85025; 85652; 86140; 87040; 87077; 87186; 87486; 87581; 87633; 87798; 96361; 96374; 99284; J1885; Q9967

== ENCOUNTER → 2023-07-13 | Outpatient (CLI) | payer MEDICARE ==
[~2023-07-13] MED LIST changes: +ALBU8.5H INH; +BENZ200C70 PO; +NIRM1TAB PO; +PANT40TA29
== END ==
LOC: M RAD 06:45
PROVIDERS: ATTEND Physician Assistant
DX: I65.23 Occlusion and stenosis of bilateral carotid arteries (principal)

== ENCOUNTER 2023-07-30 08:49 | Inpatient (IN) | payer MEDICARE ==
[~2023-07-30] VITALS: Ht 172.7 cm; Wt 82.1 kg
[~2023-07-30 08:49] MED LIST changes: -PANT40TA29; +PANT40TA29 PO
[2023-07-30] MEDS: IBUPROFEN 600MG TAB PO ONE (10:40)
[2023-07-30 16:30] LABS: BASO % 0.5 % (0.0-1.0); EOS # 0.2 10^3/uL (0.0-0.5); EOS % 2.6 % (0.0-3.0); HEMATOCRIT 41.2 % (36.0-47.0); HEMOGLOBIN 14.5 g/dl (12.0-15.5); LYMPH # 2.2 10^3/uL (1.5-5.0); LYMPH % 36.1 % (24.0-44.0); MEAN CORPUSCULAR HEMOGLOBIN 32.6 pg (27.0-33.0); MEAN CORPUSCULAR HGB CONC 35.2 g/dl (32.0-36.5); MEAN CORPUSCULAR VOLUME 92.6 fl (80.0-96.0); MONO # 0.4 10^3/uL (0.0-0.8); NEUTROPHILS # 3.3 10^3/uL (1.5-8.5); NEUTROPHILS % 53.6 % (36.0-66.0); PLATELET COUNT, AUTOMATED 105 10^3/uL (150-450); RED BLOOD COUNT 4.45 10^6/uL (4.00-5.40); WHITE BLOOD COUNT 6.1 10^3/uL (4.0-10.0)
[2023-07-30 16:44] LABS: INR 1.14; PARTIAL THROMBOPLASTIN TIME 32.2 SECONDS (24.8-34.2); PROTHROMBIN TIME 14.3 SECONDS (12.5-14.5)
[2023-07-30 16:59] LABS: ALBUMIN 3.7 G/DL (3.2-5.2); ALKALINE PHOSPHATASE 80 U/L (46-116); ALT/SGPT 22 U/L (7.0-40); AST/SGOT 25 U/L (<34); BILIRUBIN,TOTAL 1.1 MG/DL (0.3-1.2); BLOOD UREA NITROGEN 8 MG/DL (9-23); CALCIUM LEVEL 8.8 MG/DL (8.3-10.6); CARBON DIOXIDE LEVEL 26 MMOL/L (20-31); CHLORIDE LEVEL 108 MMOL/L (98-107); CREATININE FOR GFR 0.64 MG/DL (0.55-1.30); GLOMERULAR FILTRATION RATE > 60.0 (>45); GLUCOSE, FASTING 83 MG/DL (74-106); POTASSIUM SERUM 3.3 MMOL/L (3.5-5.1); SODIUM LEVEL 141 MMOL/L (136-145); TOTAL PROTEIN 6.7 G/DL (5.7-8.2)
[2023-07-30] MEDS: MORPHINE 2 MG/ML 1ML VIAL IV PRN (18:09)
[2023-07-30] MEDS: KCL 10MEQ/100ML SWI (KRUN) 10 MEQ in IV 1 EA IV SCH (18:09)
[2023-07-30] MEDS: POTASSIUM CHLORIDE 10MEQ SR TABLET PO ONE (18:56)
[2023-07-30 20:10] VITALS: BP 127/84; TEMP 98.8; O2SAT 97
[2023-07-30] MEDS: ONDANSETRON 4MG 2ML VIAL IV SCH (21:54)
[2023-07-31] VITALS (9 sets, daily range): BP systolic 103–145; BP diastolic 52–91; TEMP 97–99; O2SAT 92–98
[2023-07-31 05:49] LABS: HEMATOCRIT 39.5 % (36.0-47.0); HEMOGLOBIN 13.6 g/dl (12.0-15.5); MEAN CORPUSCULAR HEMOGLOBIN 32.6 pg (27.0-33.0); MEAN CORPUSCULAR HGB CONC 34.4 g/dl (32.0-36.5); MEAN CORPUSCULAR VOLUME 94.7 fl (80.0-96.0); PLATELET COUNT, AUTOMATED 107 10^3/uL (150-450); RED BLOOD COUNT 4.17 10^6/uL (4.00-5.40); WHITE BLOOD COUNT 6.4 10^3/uL (4.0-10.0)
[2023-07-31 06:13] LABS: BLOOD UREA NITROGEN 11 MG/DL (9-23); CALCIUM LEVEL 8.2 MG/DL (8.3-10.6); CARBON DIOXIDE LEVEL 26 MMOL/L (20-31); CHLORIDE LEVEL 110 MMOL/L (98-107); CREATININE FOR GFR 0.76 MG/DL (0.55-1.30); GLOMERULAR FILTRATION RATE > 60.0 (>45); GLUCOSE, FASTING 85 MG/DL (74-106); POTASSIUM SERUM 4.3 MMOL/L (3.5-5.1); SODIUM LEVEL 142 MMOL/L (136-145)
[2023-07-31] MEDS: PANTOPRAZOLE 40MG VIAL IV SCH (08:13)
[2023-07-31] MEDS: ACETAMINOPHEN TAB 650MG DOSE (2X325MG) PO ONE (12:50)
[2023-07-31] MEDS ORDERED: MULT-40 PO (13:39)
[2023-07-31] MEDS ORDERED: CRAN400C PO (13:39)
[2023-07-31] MEDS ORDERED: TYLE650T38 PO (13:39)
[2023-07-31] MEDS ORDERED: HOME MED LIST COMPLETE! XX SCH (13:40)
[2023-07-31] MEDS ORDERED: MIDAZOLAM INJ 2MG/2ML VIAL As Ordered ONE (15:35)
[2023-07-31] MEDS ORDERED: fentaNYL 100 MCG/2 ML INJECTION As Ordered ONE (15:35)
[2023-07-31] MEDS ORDERED: ONDANSETRON 4MG 2ML VIAL As Ordered ONE (15:35)
[2023-07-31] MEDS ORDERED: LIDOCAINE 2% 100MG/5ML SDV (FOR ANES.) As Ordered ONE (15:35)
[2023-07-31] MEDS ORDERED: propofoL 200 MG/20 ML VIAL As Ordered ONE (15:35)
[2023-07-31] MEDS ORDERED: TRANEXAMIC ACID 100 MG/ML 10ML VIAL As Ordered ONE (15:58)
[2023-07-31] MEDS ORDERED: ROCURONIUM BROMIDE 50MG/5ML VIAL As Ordered ONE (15:59)
[2023-07-31] MEDS ORDERED: ACETAMINOPHEN 1000MG 100ML IV BAG As Ordered ONE (16:37)
[2023-07-31] MEDS: VANCOMYCIN 1000MG/20ML VIAL As Ordered ONE (16:49)
[2023-07-31] MEDS ORDERED: SUGAMMADEX SODIUM 500 MG/5 ML VIAL (BRIDION) As Ordered ONE (17:10)
[2023-07-31] MEDS ORDERED: fentaNYL 100 MCG/2 ML INJECTION IV PRN (17:20)
[2023-07-31] MEDS ORDERED: PROMETHAZINE 25MG/ML 1ML VIAL IV PRN (17:20)
[2023-07-31] MEDS ORDERED: ONDANSETRON 4MG 2ML VIAL IV PRN (17:20)
[2023-07-31] MEDS ORDERED: ePHEDrine SULFATE 25 MG/5 ML(5MG/ML) SYRINGE As Ordered ONE (17:51)
[2023-07-31] MEDS ORDERED: PHENYLephrine 500MCG 5ML (100MCG/ML) SYRINGE As Ordered ONE (17:51)
[2023-07-31] MEDS: HYDROMORPHONE HCL 0.5 MG/ 0.5 ML SYRINGE IV PRN (18:02)
[2023-07-31] MEDS: NORCO, ANEXSIA 5/325MG TABLET (HYDROcodone/ACETAMINOPHEN) PO PRN (18:16)
[2023-07-31] MEDS: LR 1,000 ML IV SCH (18:43)
[2023-08-01 06:00] VITALS: BP 115/70; TEMP 97.3; O2SAT 90
[2023-08-01 06:06] LABS: BASO % 0.3 % (0.0-1.0); EOS % 0.1 % (0.0-3.0); HEMATOCRIT 38.9 % (36.0-47.0); HEMOGLOBIN 13.1 g/dl (12.0-15.5); LYMPH # 1.3 10^3/uL (1.5-5.0); MEAN CORPUSCULAR HEMOGLOBIN 32.3 pg (27.0-33.0); MEAN CORPUSCULAR HGB CONC 33.7 g/dl (32.0-36.5); MONO # 0.6 10^3/uL (0.0-0.8); MONO % 7.4 % (2.0-8.0); NEUTROPHILS # 5.8 10^3/uL (1.5-8.5); NEUTROPHILS % 74.9 % (36.0-66.0); PLATELET COUNT, AUTOMATED 130 10^3/uL (150-450); RED BLOOD COUNT 4.05 10^6/uL (4.00-5.40); WHITE BLOOD COUNT 7.7 10^3/uL (4.0-10.0)
[2023-08-01 06:27] LABS: BLOOD UREA NITROGEN 12 MG/DL (9-23); CALCIUM LEVEL 7.9 MG/DL (8.3-10.6); CARBON DIOXIDE LEVEL 27 MMOL/L (20-31); CHLORIDE LEVEL 107 MMOL/L (98-107); CREATININE FOR GFR 0.68 MG/DL (0.55-1.30); GLOMERULAR FILTRATION RATE > 60.0 (>45); GLUCOSE, FASTING 107 MG/DL (74-106); POTASSIUM SERUM 4.4 MMOL/L (3.5-5.1); SODIUM LEVEL 138 MMOL/L (136-145)
[2023-08-01 08:50] VITALS: BP 123/71; TEMP 98.4; O2SAT 91
[2023-08-01] MEDS: ENOXAPARIN 40MG/0.4ML SYRINGE (J1650 PER 10MG) SC SCH (09:16)
[2023-08-01] MEDS: NORCO, ANEXSIA 5/325MG TABLET (HYDROcodone/ACETAMINOPHEN) PO PRN (10:19)
[2023-08-01] MEDS ORDERED: HYDR-3715 PO ×2 (12:08→12:41)
[2023-08-01] MEDS ORDERED: ASPI81CH33 PO (12:08)
[2023-08-01] MEDS ORDERED: ASPI-615 PO (12:39)
== END 2023-08-01 14:00 | disposition home health service (06) | DRG 482 ==
LOC: M ED 08:49 → M ED INP 17:08 → ENRESERV 19:33 → M MS5PR 20:03
PROVIDERS: ADMIT Internal Medicine; ATTEND Internal Medicine
PROC: 0QS706Z Reposition Left Upper Femur with Intramedullary Internal Fixation Device, Open Approach (ICD-10-PCS; principal; 2023-07-31 16:00)
DX: S72.142A Displaced intertrochanteric fracture of left femur, initial encounter for closed fracture (principal); M19.90 Unspecified osteoarthritis, unspecified site; M48.02 Spinal stenosis, cervical region; K74.60 Unspecified cirrhosis of liver; K21.9 Gastro-esophageal reflux disease without esophagitis; V00.831A Fall from motorized mobility scooter, initial encounter; Y92.9 Unspecified place or not applicable; Y93.9 Activity, unspecified; Z90.49 Acquired absence of other specified parts of digestive tract; Z90.79 Acquired absence of other genital organ(s); Z88.2 Allergy status to sulfonamides; Z88.5 Allergy status to narcotic agent; Z20.822 Contact with and (suspected) exposure to COVID-19

== ENCOUNTER → 2023-08-16 | Outpatient (CLI) | payer MEDICARE ==
[~2023-08-16] MED LIST changes: +ASPI-615 PO; +ASPI81CH33 PO; +CRAN400C PO; +HYDR-3715 PO; +MULT-40 PO; +TYLE650T38 PO
== END ==
LOC: M SOG 07:53
PROVIDERS: ATTEND Physician Assistant
DX: S72.145A Nondisplaced intertrochanteric fracture of left femur, initial encounter for closed fracture (principal); Y93.9 Activity, unspecified; Y92.9 Unspecified place or not applicable

== ENCOUNTER → 2023-09-20 | Outpatient (CLI) | payer MEDICARE | LOC: M SOG 07:52 | PROVIDERS: ATTEND Physician Assistant | DX: S72.145A Nondisplaced intertrochanteric fracture of left femur, initial encounter for closed fracture (principal); W18.30XA Fall on same level, unspecified, initial encounter; Y92.009 Unspecified place in unspecified non-institutional (private) residence as the place of occurrence of the external cause ==

== ENCOUNTER → 2023-10-25 | Outpatient (CLI) | payer MEDICARE ==
[~2023-10-25] MED LIST changes: +CRAN500C11 PO; -CVS500CA5 PO
== END ==
LOC: M SOG 08:22
PROVIDERS: ATTEND Physician Assistant
DX: S72.145A Nondisplaced intertrochanteric fracture of left femur, initial encounter for closed fracture (principal); X58.XXXA Exposure to other specified factors, initial encounter; Y92.9 Unspecified place or not applicable

== ENCOUNTER → 2023-10-31 | Outpatient (CLI) | payer MEDICARE ==
[2023-10-31 12:40] LABS: CALCIUM LEVEL 9.1 MG/DL (8.3-10.6)
== END ==
LOC: M PLALAB 06:53
PROVIDERS: ATTEND Orthopaedic Surgery
DX: S72.145D Nondisplaced intertrochanteric fracture of left femur, subsequent encounter for closed fracture with routine healing (principal); M81.0 Age-related osteoporosis without current pathological fracture; Y93.9 Activity, unspecified; Y92.9 Unspecified place or not applicable

== ENCOUNTER → 2023-12-05 | Outpatient (REF) | payer MEDICARE ==
[~2023-12-05] MED LIST changes: -CRAN400C PO; +CRANBERRY400 MG PO; +ESOM1CAP20 PO; -ESOM1CAP5 PO
== END ==
LOC: M LAB REF 12:13
PROVIDERS: ATTEND Nurse Practitioner Adult Health
DX: R10.9 Unspecified abdominal pain (principal)

== ENCOUNTER → 2023-12-26 | Outpatient (REF) | payer MEDICARE ==
[2023-12-27 15:08] LABS: HEPATITIS C QUANTITATION HCV Not Detected IU/mL (.)
== END ==
LOC: M LAB REF 11:49
PROVIDERS: ATTEND Nurse Practitioner Adult Health
DX: K74.60 Unspecified cirrhosis of liver (principal); B18.2 Chronic viral hepatitis C; R19.7 Diarrhea, unspecified

== ENCOUNTER → 2024-01-16 | Outpatient (CLI) | payer MEDICARE | LOC: M SOG 08:06 | PROVIDERS: ATTEND Physician Assistant | DX: S72.145A Nondisplaced intertrochanteric fracture of left femur, initial encounter for closed fracture (principal); Y93.9 Activity, unspecified; Y92.9 Unspecified place or not applicable ==

== ENCOUNTER → 2024-01-17 | Outpatient (CLI) | payer MEDICARE | LOC: M RAD 07:13 | PROVIDERS: ATTEND Nurse Practitioner Adult Health | DX: K74.60 Unspecified cirrhosis of liver (principal); B18.2 Chronic viral hepatitis C; K76.89 Other specified diseases of liver ==

== ENCOUNTER → 2024-03-13 | Outpatient (REF) | payer MEDICARE ==
[2024-03-13 17:39] LABS: RSV AMPLIFICATION NEGATIVE (NEGATIVE)
== END ==
LOC: M LAB REF 16:06
PROVIDERS: ATTEND Nurse Practitioner Adult Health
DX: J02.9 Acute pharyngitis, unspecified (principal)

== ENCOUNTER → 2024-04-05 | Outpatient (CLI) | payer MEDICARE ==
[~2024-04-05] MED LIST changes: -CRAN500C11 PO; +CVS500CA5 PO
== END ==
LOC: M WHC 08:27
PROVIDERS: ATTEND Nurse Practitioner Adult Health
DX: Z12.31 Encounter for screening mammogram for malignant neoplasm of breast (principal); Z13.820 Encounter for screening for osteoporosis; M85.851 Other specified disorders of bone density and structure, right thigh; M85.852 Other specified disorders of bone density and structure, left thigh

== ENCOUNTER → 2024-04-22 | Outpatient (REF) | payer MEDICARE ==
[2024-04-22 13:10] LABS: APPEARANCE, URINE CLEAR (CLEAR); BACTERIA, URINE AUTO NEGATIVE (NEGATIVE); BILIRUBIN, URINE AUTO NEGATIVE (NEGATIVE); BLOOD, URINE BLOOD NEGATIVE (NEGATIVE); COLOR, URINE YELLOW (YELLOW); GLUCOSE, URINE (UA) AUTO NEGATIVE (NEGATIVE); KETONE, URINE AUTO NEGATIVE (NEGATIVE); LEUKOCYTE ESTERASE, URINE AUTO NEGATIVE (NEGATIVE); MUCUS, URINE SMALL (NEGATIVE); NITRITE, URINE AUTO NEGATIVE (NEGATIVE); PROTEIN, URINE AUTO NEGATIVE (NEGATIVE); RBC, URINE AUTO 1 /HPF (0-3); SPECIFIC GRAVITY URINE AUTO 1.024 (1.002-1.035); SQUAMOUS EPITHELIAL CELL UR AU 1 /HPF (0-6); UROBILINOGEN, URINE AUTO 0.2 mg/dL (0.0-2.0); WBC, URINE AUTO 0 /HPF (0-3)
[2024-04-22 18:07] LABS: C REACTIVE PROTEIN QUANTITATIV < 0.40 MG/DL (<1.0)
[2024-04-22 18:08] LABS: RHEUMATOID FACTOR QUANT 5.2 IU/ML (<14)
[2024-04-22 18:11] LABS: FREE T3 3.4 PG/ML (2.3-4.2)
[2024-04-24 15:16] LABS: ANA SCREEN, IFA NEGATIVE (NEGATIVE)
== END ==
LOC: M LAB REF 12:17
PROVIDERS: ATTEND Nurse Practitioner Adult Health
DX: R35.0 Frequency of micturition (principal); F41.9 Anxiety disorder, unspecified; M54.50 Low back pain, unspecified; R51.9 Headache, unspecified; Z11.59 Encounter for screening for other viral diseases

== ENCOUNTER 2024-06-16 07:40 | Emergency (ER) | payer MEDICARE ==
[~2024-06-16] VITALS: Ht 172.7 cm; Wt 94.0 kg
[~2024-06-16 07:40] MED LIST changes: -CYCL5TAB PO; +CYCL5TAB4 PO
[2024-06-16 08:35] LABS: BASO # 0.1 10^3/uL (0.0-0.2); EOS # 0.2 10^3/uL (0.0-0.5); EOS % 4.1 % (0.0-3.0); HEMATOCRIT 42.4 % (36.0-47.0); HEMOGLOBIN 14.9 g/dl (12.0-15.5); LYMPH # 1.2 10^3/uL (1.5-5.0); LYMPH % 25.4 % (24.0-44.0); MEAN CORPUSCULAR HGB CONC 35.1 g/dl (32.0-36.5); MEAN CORPUSCULAR VOLUME 93.8 fl (80.0-96.0); MONO # 0.4 10^3/uL (0.0-0.8); MONO % 8.9 % (2.0-8.0); NEUTROPHILS # 2.9 10^3/uL (1.5-8.5); NEUTROPHILS % 60.4 % (36.0-66.0); PLATELET COUNT, AUTOMATED 153 10^3/uL (150-450); RED BLOOD COUNT 4.52 10^6/uL (4.00-5.40); WHITE BLOOD COUNT 4.9 10^3/uL (4.0-10.0)
[2024-06-16 09:03] LABS: CK-MB VALUE MASS 3.9 NG/ML (<3.6)
[2024-06-16 09:04] LABS: LIPASE 33 U/L (12-53)
[2024-06-16 09:06] LABS: ALBUMIN 3.9 G/DL (3.2-5.2); ALKALINE PHOSPHATASE 80 U/L (35-104); ALT/SGPT 33 U/L (7.0-40); AST/SGOT 35 U/L (<34); BILIRUBIN,DIRECT 0.3 MG/DL (<0.4); BILIRUBIN,TOTAL 0.9 MG/DL (0.3-1.2); BLOOD UREA NITROGEN 13 MG/DL (9-23); CALCIUM LEVEL 9.3 MG/DL (8.3-10.6); CARBON DIOXIDE LEVEL 26 MMOL/L (20-31); CHLORIDE LEVEL 109 MMOL/L (98-107); CREATININE FOR GFR 0.65 MG/DL (0.55-1.30); GLOMERULAR FILTRATION RATE > 60.0 (>39); GLUCOSE, FASTING 89 MG/DL (74-106); POTASSIUM SERUM 3.8 MMOL/L (3.5-5.1); SODIUM LEVEL 145 MMOL/L (136-145); THYROID STIMULATING HORMONE 2.052 uIU/ML (0.55-4.78)
[2024-06-16 09:08] LABS: CPK CREATINE PHOSPHOKINASE 216 U/L (34-145); FREE T4 1.08 NG/DL (0.89-1.76)
[2024-06-16 09:10] LABS: INR 1.08; PARTIAL THROMBOPLASTIN TIME 33.7 SECONDS (24.8-34.2); PROTHROMBIN TIME 14.3 SECONDS (12.5-14.5)
[2024-06-16 09:54] LABS: CK-MB VALUE MASS 3.6 NG/ML (<3.6)
[2024-06-16 09:57] LABS: MB/CK RELATIVE INDEX 1.79 (< OR =4)
[2024-06-16] MEDS ORDERED: ISOVUE-370 76% 100ML VIAL As Ordered ONE (10:32)
[2024-06-16] MEDS ORDERED: FLON27.5 NARES (13:35)
[2024-06-16 13:45] VITALS: BP 173/86
[2024-06-16 13:46] VITALS: TEMP 98.2; O2SAT 95
== END 2024-06-16 14:08 | disposition home or self-care (01) ==
LOC: M ED 07:40
DX: R07.89 Other chest pain (principal); R42 Dizziness and giddiness; J01.90 Acute sinusitis, unspecified; Z86.19 Personal history of other infectious and parasitic diseases; K74.60 Unspecified cirrhosis of liver; K21.9 Gastro-esophageal reflux disease without esophagitis; Z79.899 Other long term (current) drug therapy; Z88.5 Allergy status to narcotic agent; Z88.2 Allergy status to sulfonamides
CPT/HCPCS: 70450; 70496; 70498; 70551; 71045; 80048; 80076; 82550; 82553; 83690; 84439; 84443; 84484; 85025; 85610; 85730; 87486; 87581; 87633; 87798; 93005; 93041; 94760; 99285; Q9967

== ENCOUNTER → 2024-07-23 | Outpatient (REF) | payer MEDICARE ==
[~2024-07-23] MED LIST changes: +ACE65ERTAB PO; +ALEN70TA82 PO; +FLON27.5 NARES; +GLUC1TAB58 PO
== END ==
LOC: M LAB REF 13:08
PROVIDERS: ATTEND Nurse Practitioner Adult Health
DX: R10.9 Unspecified abdominal pain (principal); K74.60 Unspecified cirrhosis of liver

== ENCOUNTER → 2024-09-11 | Outpatient (CLI) | payer MEDICARE ==
[~2024-09-11] MED LIST changes: +FIBECHW4 PO; +FLUTISP; +HYDR-4429 PO; +NAPR220C14 PO
== END ==
LOC: M SOG 08:15
PROVIDERS: ATTEND Orthopaedic Surgery
DX: S72.145D Nondisplaced intertrochanteric fracture of left femur, subsequent encounter for closed fracture with routine healing (principal); M54.50 Low back pain, unspecified

== ENCOUNTER 2024-09-23 06:47 | Day surgery (SDC) | payer MEDICARE ==
[~2024-09-23] VITALS: Ht 172.7 cm; Wt 91.6 kg
[2024-09-23] MEDS ORDERED: propofoL 200 MG/20 ML VIAL As Ordered ONE (07:40)
[2024-09-23] MEDS ORDERED: LIDOCAINE 2% 100MG/5ML SDV (FOR ANES.) As Ordered ONE (07:40)
[2024-09-23] MEDS ORDERED: GLYCOPYRROLATE INJ 0.2 MG/ML 2 ML VIAL As Ordered ONE (08:32)
[2024-09-23 08:50] VITALS: TEMP 97.4
[2024-09-23 09:20] VITALS: BP 96/59; O2SAT 95
== END 2024-09-23 09:30 | disposition home or self-care (01) ==
LOC: M OPP 06:47
PROVIDERS: ATTEND Internal Medicine Gastroenterology
DX: Z12.11 Encounter for screening for malignant neoplasm of colon (principal); D12.8 Benign neoplasm of rectum; D12.2 Benign neoplasm of ascending colon; K57.30 Diverticulosis of large intestine without perforation or abscess without bleeding; K64.0 First degree hemorrhoids; Z80.0 Family history of malignant neoplasm of digestive organs; Z86.0100 Personal history of colon polyps, unspecified; K44.9 Diaphragmatic hernia without obstruction or gangrene; K74.60 Unspecified cirrhosis of liver; Z88.2 Allergy status to sulfonamides; Z88.5 Allergy status to narcotic agent; Z79.891 Long term (current) use of opiate analgesic; Z79.899 Other long term (current) drug therapy; K57.32 Diverticulitis of large intestine without perforation or abscess without bleeding; B19.9 Unspecified viral hepatitis without hepatic coma
CPT/HCPCS: 43235; 45380; 45385; 88305; J1596

== ENCOUNTER → 2024-10-17 | Outpatient (REF) | payer MEDICARE | LOC: M LAB REF 12:14 | PROVIDERS: ATTEND Nurse Practitioner Adult Health | DX: R10.9 Unspecified abdominal pain (principal) ==

== ENCOUNTER → 2024-10-30 | Outpatient (CLI) | payer MEDICARE ==
[~2024-10-30] MED LIST changes: +ISOVUE-370 76% 100ML VIAL ONE; +LIDO1ADH93 TOP; -LIDO5DIS41 TOP
== END ==
LOC: M PLAIMG 12:49
PROVIDERS: ATTEND Nurse Practitioner Adult Health
DX: R10.32 Left lower quadrant pain (principal); K76.89 Other specified diseases of liver
CPT/HCPCS: 74177; Q9967

== ENCOUNTER → 2025-05-05 | Outpatient (CLI) | payer MEDICARE ==
[~2025-05-05] MED LIST changes: -ACE65ERTAB PO; +ACET-1515 PO; +ACET-1593 PO; -ACET650T15 PO; -ISOVUE-370 76% 100ML VIAL ONE
== END ==
LOC: M WHC 08:27
PROVIDERS: ATTEND Nurse Practitioner Adult Health
DX: Z12.31 Encounter for screening mammogram for malignant neoplasm of breast (principal)

== ENCOUNTER 2025-06-05 07:37 | Emergency (ER) | payer MEDICARE ==
[~2025-06-05] VITALS: Ht 175.3 cm; Wt 91.8 kg
[~2025-06-05 07:37] MED LIST changes: +ACET-1387 PO; -ACET-1593 PO
[2025-06-05] MEDS ORDERED: VONO20TA PO (08:08)
[2025-06-05] MEDS ORDERED: FAMO40TA3 (08:08)
[2025-06-05] MEDS: SUCRALFATE SUSP 1GM/10ML UD PO ONE (10:53)
[2025-06-05] MEDS: MAALOX 30 ML SUSP *UDC PO ONE (10:53)
[2025-06-05] MEDS: PANTOPRAZOLE 40MG VIAL IV ONE (10:54)
[2025-06-05 11:11] LABS: KETONE, URINE AUTO RFX TRACE mg/dL (NEGATIVE); LEUKOCYTE ESTERASE UR AUTO RFX NEGATIVE (NEGATIVE); MUCUS, URINE RFX SMALL (NEGATIVE); NITRITE, URINE AUTO RFX NEGATIVE (NEGATIVE); RBC, URINE AUTO RFX 2 /HPF (0-3); SQUAM EPITHELIAL CELL UR AURFX 1 /HPF (0-6); WBC, URINE AUTO RFX 0 /HPF (0-3)
[2025-06-05 11:15] LABS: BASO # 0.1 10^3/uL (0.0-0.2); BASO % 0.9 % (0.0-1.0); EOS # 0.1 10^3/uL (0.0-0.5); EOS % 1.6 % (0.0-3.0); LYMPH # 1.6 10^3/uL (1.5-5.0); LYMPH % 28.6 % (24.0-44.0); MONO # 0.4 10^3/uL (0.0-0.8); MONO % 7.7 % (2.0-8.0); NEUTROPHILS # 3.3 10^3/uL (1.5-8.5); NEUTROPHILS % 61.0 % (36.0-66.0); PLATELET COUNT, AUTOMATED 159 10^3/uL (150-450)
[2025-06-05 11:34] LABS: ALT/SGPT 41 U/L (7.0-40); AST/SGOT 51 U/L (<34); CALCIUM LEVEL 9.2 MG/DL (8.3-10.6); CARBON DIOXIDE LEVEL 27 MMOL/L (20-31); CHLORIDE LEVEL 106 MMOL/L (98-107); CREATININE FOR GFR 0.68 MG/DL (0.55-1.30); GLOMERULAR FILTRATION RATE > 90.0 (>39); MAGNESIUM LEVEL 1.8 MG/DL (1.8-2.4); POTASSIUM SERUM 3.7 MMOL/L (3.5-5.1); SODIUM LEVEL 144 MMOL/L (136-145)
[2025-06-05] MEDS ORDERED: ISOVUE-370 76% 100 ML VIAL As Ordered ONE (11:44)
[2025-06-05 13:05] VITALS: BP 149/80; TEMP 97; O2SAT 97
== END 2025-06-05 13:10 | disposition home or self-care (01) ==
LOC: M ED 07:37
DX: R10.9 Unspecified abdominal pain (principal); K21.9 Gastro-esophageal reflux disease without esophagitis; K44.9 Diaphragmatic hernia without obstruction or gangrene; K57.90 Diverticulosis of intestine, part unspecified, without perforation or abscess without bleeding; K74.60 Unspecified cirrhosis of liver; I85.10 Secondary esophageal varices without bleeding; Z79.899 Other long term (current) drug therapy; Z88.5 Allergy status to narcotic agent; Z88.2 Allergy status to sulfonamides
CPT/HCPCS: 74177; 80053; 81001; 83690; 83735; 84443; 85025; 93005; 96374; 99284; J2470; Q9967